=== PATIENT | female | born 1935 | race Caucasian/White ===

== ENCOUNTER 2019-12-18 10:44 | Inpatient (IN) | payer MEDICARE, OTHER, MEDICAID ==
--- NOTE | 2019-12-18 11:55 | EDM.PDOC ---
ED HPI GENERAL MEDICAL PROBLEM - General Chief Complaint: General Stated Complaint: weakness, SOB, edema Time Seen by Provider: 12/18/19 11:44 Source of Information: Reports: Patient History Limitations: Reports: No Limitations - History of Present Illness INITIAL COMMENTS - FREE TEXT/NARRATIVE: Patient comes to ER complaining of developing severe fatigue and inability to perform ADLs. Somewhat vague as to timeframe of strength slipping but appears to have been noticeable over the last week or two. Came via EMS. Has lost about 10-15 pounds within the last month. Denies fevers/chills/night sweats Denies obvious infectious symptoms. Uses nebs at home but they are not on her med records/suspect she may be using her 's nebs. HEENT negative for headache/ST/runny nose/acute changes. Has chronic vertigo and says that is unchanged. Resp + for "40min of coughing" this morning. Denies other problems with coughing. Not coughing anything up. Has SOB with any activity. No pain with inspiration. CV negative for chest pain/palpitations/syncope/worsening baseline dizziness. GI negative for nausea/emesis/bowel change/abdominal pain/blood in stool negative for UTI complaints/hematuria/acute changes MS + for generalized weakness. No new focal complaint. No new pain complaint. Has worsening lower extremity edema bilaterally Neuro + for tingly hands and fingers at times. Denies other numbness/tingling or focal weakness Said she recently saw a doctor but could not recall who/where/when. Has history of lung cancer upon review of record. Patient says she has had squamous cell cancer but NOT lung cancer. agrees that he never heard of a cancer diagnosis in the past. feels that patient has really gone downhill this spring and especially over the last few months. She sometimes gets confused and he wonders about developing dementia. Patient does not want any artificial life support. Has home O2/NC Sats noted to be in low 80s upon arrival to ER. Currently on 2L NC with O2 sats 99% Neck Pain Score (Numeric/FACES): 3 - Related Data Allergies Allergy/AdvReac Type Severity Reaction Status Date / Time aspirin [From Fiorinal] Allergy Other Verified 12/18/19 11:22 butalbital [From Fiorinal] Allergy Other Verified 12/18/19 11:22 caffeine [From Fiorinal] Allergy Other Verified 12/18/19 11:22 clopidogrel [From Plavix] Allergy Other Verified 12/18/19 11:22 tetracycline Allergy Other Verified 12/18/19 11:22 furosemide [From Lasix] AdvReac Dizziness Verified 12/18/19 11:22 hydrocodone bitartrate AdvReac Vomiting Verified 12/18/19 11:22 [From Vicoprofen] ibuprofen [From Vicoprofen] AdvReac Vomiting Verified 12/18/19 11:22 Home Meds: Home Meds Cholecalciferol (Vitamin D3) [Vitamin D3] 2 tab PO DAILY 04/30/14 [History] Latanoprost [Xalatan 0.005% Ophth Soln] 1 drop EYEBOTH BEDTIME 04/30/14 [History] Timolol [Betimol 0.5% Ophth Soln] 1 drop EYEBOTH DAILY 04/30/14 [History] Albuterol [IMW: Albuterol] 1 dose INH BID 04/30/16 [History] Magnesium Hydroxide [Milk of Magnesia] 30 ml PO DAILY PRN 10/22/19 [History] clonazePAM [Clonazepam] 0.5 mg PO BID 10/22/19 [History] Acetaminophen [Tylenol] 650 mg PO Q4H PRN tablet 10/24/19 [Rx] Potassium Chloride 20 meq PO DAILY #5 tablet.er 10/24/19 [Rx] Non-Formulary Medication [NF Drug] 2 liter NASBOTH ASDIRECTED 12/18/19 [History] Torsemide 100 mg PO DAILY 12/18/19 [History] Past Medical History HEENT History: Reports: Cataract, Epistaxis, Glaucoma, Hard of Hearing, Other (See Below) Other HEENT History: Glossitis Cardiovascular History: Reports: Heart Failure, Heart Murmur, Hypertension, Pulmonary Hypertension, SOB on Exertion Respiratory History: Reports: Pulmonary Fibrosis, SOB Gastrointestinal History: Reports: Chronic Constipation, Diverticulosis Genitourinary History: Reports: Other (See Below) Other Genitourinary History: UTI 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: Musculoskeletal History: Reports: Other (See Below) (Kyphosis) Psychiatric History: Reports: Anxiety, Depression Hematologic History: Reports: Anemia Oncologic (Cancer) History: Reports: Squamous Cell Carcinoma Other Oncologic History: Skin Dermatologic History: Reports: Other (See Below) Other Dermatologic History: Alopecia - Infectious Disease History Infectious Disease History: Reports: Chicken Pox - Past Surgical History HEENT Surgical History: Reports: Cataract Surgery, Eye Surgery, Laser Surgery Other HEENT Surgeries/Procedures: selective laser trabeculoplasty - od, Yag capsulotomy - od both eyes Social & Family History - Family History Family Medical History: Noncontributory - Caffeine Use Caffeine Use: Reports: None - Living Situation & Occupation Living situation: Reports: ED ROS GENERAL - Review of Systems Review Of Systems: Comprehensive ROS is negative, except as noted in HPI. ED EXAM, GENERAL - Physical Exam Exam: See Below Exam Limited By: No Limitations General Appearance: Obese, Other (Patient easily doses off. Answers questions when asked/low volume voice. ) Eye Exam: Bilateral Eye: EOMI, PERRL Ears: Hearing Grossly Normal Nose: No: Nasal Deformity, Nasal Swelling, Nasal Drainage Throat/Mouth: Normal Lips, Normal Voice, No Airway Compromise Head: Atraumatic, Normocephalic Neck: Supple, Non-Tender, Full Range of Motion Respiratory/Chest: No Respiratory Distress, Other (Very kyphotic back. Decreased breath sounds throughout, more so on right. Mild crackles at bases. ) Cardiovascular: Normal Peripheral Pulses, Regular Rate, Rhythm, Systolic Murmur Peripheral Pulses: 2+: Radial (L), Radial (R) GI/Abdominal: Normal Bowel Sounds, Soft, Non-Tender, No Distention (Female) Exam: Deferred Rectal (Female) Exam: Deferred Back Exam: No: CVA Tenderness (L), CVA Tenderness (R), Muscle Spasm Extremities: Pedal Edema (Bilaterally, 3-4+, mild erythema over anterior lower left leg but no increase in warmth noted. Skin intact/no drainage). No: Leg P ain, Increased Warmth, Mottled, Pallor Neurological: Alert, Oriented, Other (equal tone and strength bilaterally) Psychiatric: Flat Affect Skin Exam: Warm, Dry, Intact, Normal Color EKG INTERPRETATION EKG Date: 12/18/19 Time: 11:33 Rhythm: NSR Rate (Beats/Min): 91 [place]: Normal P-Wave: Present QRS: Normal ST-T: Normal QT: Normal Course - Vital Signs Last Recorded V/S: Last Vital Signs Temp 37.1 C 12/18/19 11:00 Pulse 92 12/18/19 12:30 Resp 24 H 12/18/19 12:30 BP 128/81 12/18/19 12:30 Pulse Ox 100 12/18/19 12:30 - Orders/Labs/Meds Orders: Active Orders 24 hr Category Date Time Status BIPAP [RT BiPAP/CPAP] [RC] ASDIRECTED Care 12/18/19 14:57 Active EKG Documentation Completion [RC] ASDIRECTED Care 12/18/19 11:17 Active RT Aerosol Therapy [RC] ASDIRECTED Care 12/18/19 15:08 Active CXR [Chest 2V] [CR] Stat Exams 12/18/19 11:16 Taken Chest w Cont [CT] Stat Exams 12/18/19 12:17 Taken Sodium Chloride 0.9% [Saline Flush] Med 12/18/19 17:28 Active 10 ml FLUSH ASDIRECTED PRN Medication Orders Sodium Chloride (Saline Flush) 10 ml FLUSH ASDIRECTED PRN PRN Reason: to flush Saline Lock Last Admin: 12/18/19 17:32 Dose: 10 ml Documented by: AUGUSTO Labs: Laboratory Tests 12/18/19 12/18/19 12/18/19 Range/Units 11:35 11:35 12:18 WBC 7.1 (4.0-10.2) K/uL RBC 3.72 L (3.77-5.09) M/uL Hgb 10.8 L (11.7-15.5) g/dL Hct 35.2 (34.0-46.0) % MCV 94.6 (84.0-98.0) fL MCH 29.0 (28.2-33.3) pg MCHC 30.7 L (31.7-36.0) g/dL RDW 12.4 (11.2-14.1) % Plt Count 178 (150-350) K/uL Neut % (Auto) 73.1 (45.0-80.0) % Lymph % (Auto) 13.1 (10.0-50.0) % [facility] % (Auto) 10.7 (2.0-14.0) % Eos % (Auto) 2.5 (0.0-5.0) % Baso % (Auto) 0.6 (0.0-2.0) % Neut # (Auto) 5.17 (1.40-7.00) K/uL Lymph # (Auto) 0.93 (0.50-3.50) K/uL [facility] # (Auto) 0.76 (0.00-1.00) K/uL Eos # (Auto) 0.18 (0.00-0.50) K/uL Baso # (Auto) 0.04 (0.00-0.20) K/uL ABG pH (7.35-7.45) ABG pCO2 (35-45) mmHG ABG pO2 (80-105) mmHG ABG HCO3 (22-26) mmol/L ABG Total CO2 (23-27) mmol/L ABG O2 Saturation (95-98) % ABG Base Excess (-2-3) mmol/L O2 Delivery Device Sodium 134 L (136-145) mmol/L Potassium 3.4 L (3.5-5.1) mmol/L Chloride 90 L (98-107) mmol/L Carbon Dioxide 46.3 H* (21.0-32.0) mmol/L BUN 9 (7-18) mg/dL Creatinine 0.40 L (0.51-1.17) mg/dL Est Cr Clr Drug Dosing TNP Estimated GFR (MDRD) > 60 mL/min Glucose 112 H (74-106) mg/dL Calcium 9.2 (8.5-10.1) mg/dL Magnesium 2.2 (1.8-2.4) mg/dL Total Bilirubin 0.6 (0.2-1.0) mg/dL AST 19 (15-37) U/L ALT 18 (12-78) U/L Alkaline Phosphatase 68 (46-116) IU/L NT-Pro-B Natriuret Pep 194 H (0-125) pg/mL Total Protein 7.3 (6.4-8.2) g/dL Albumin 2.8 L (3.4-5.0) g/dL Specimen Type Urinvoid Urine Color Susan Urine Appearance Clear Urine pH 7.5 (5.0-9.0) Ur Specific [place] 1.020 (1.005-1.030) Urine Protein Trace H (NEGATIVE) mg/dL Urine Glucose (UA) Negative (NEGATIVE) mg/dL Urine Ketones Negative (NEGATIVE) mg/dL Urine Occult Blood Trace-lysed H (NEGATIVE) Urine Nitrite Negative (NEGATIVE) Urine Bilirubin Small H (NEGATIVE) Urine Urobilinogen 1.0 (0.2-1.0) E.U./dL Ur Leukocyte Esterase Trace H (NEGATIVE) Urine RBC 0-5 /HPF Urine WBC 5-10 H /HPF Ur Epithelial Cells Few /LPF Urine Bacteria Few (NONE TO FEW) /HPF Urinalysis Comment 12/18/19 12/18/19 Range/Units 12:39 16:55 WBC (4.0-10.2) K/uL RBC (3.77-5.09) M/uL Hgb (11.7-15.5) g/dL Hct (34.0-46.0) % MCV (84.0-98.0) fL MCH (28.2-33.3) pg MCHC (31.7-36.0) g/dL RDW (11.2-14.1) % Plt Count (150-350) K/uL Neut % (Auto) (45.0-80.0) % Lymph % (Auto) (10.0-50.0) % [facility] % (Auto) (2.0-14.0) % Eos % (Auto) (0.0-5.0) % Baso % (Auto) (0.0-2.0) % Neut # (Auto) (1.40-7.00) K/uL Lymph # (Auto) (0.50-3.50) K/uL [facility] # (Auto) (0.00-1.00) K/uL Eos # (Auto) (0.00-0.50) K/uL Baso # (Auto) (0.00-0.20) K/uL ABG pH 7.34 L 7.37 (7.35-7.45) ABG pCO2 95 H* 89 H* (35-45) mmHG ABG pO2 98 75 L (80-105) mmHG ABG HCO3 51.4 H 50.8 H (22-26) mmol/L ABG Total CO2 > 50 H > 50 H (23-27) mmol/L ABG O2 Saturation 96 93 L (95-98) % ABG Base Excess 26 H 26 H (-2-3) mmol/L O2 Delivery Device Nasal cannula Bipap Sodium (136-145) mmol/L Potassium (3.5-5.1) mmol/L Chloride (98-107) mmol/L Carbon Dioxide (21.0-32.0) mmol/L BUN (7-18) mg/dL Creatinine (0.51-1.17) mg/dL Est Cr Clr Drug Dosing Estimated GFR (MDRD) mL/min Glucose (74-106) mg/dL Calcium (8.5-10.1) mg/dL Magnesium (1.8-2.4) mg/dL Total Bilirubin (0.2-1.0) mg/dL AST (15-37) U/L ALT (12-78) U/L Alkaline Phosphatase (46-116) IU/L NT-Pro-B Natriuret Pep (0-125) pg/mL Total Protein (6.4-8.2) g/dL Albumin (3.4-5.0) g/dL Specimen Type Urine Color Urine Appearance Urine pH (5.0-9.0) Ur Specific [place] (1.005-1.030) Urine Protein (NEGATIVE) mg/dL Urine Glucose (UA) (NEGATIVE) mg/dL Urine Ketones (NEGATIVE) mg/dL Urine Occult Blood (NEGATIVE) Urine Nitrite (NEGATIVE) Urine Bilirubin (NEGATIVE) Urine Urobilinogen (0.2-1.0) E.U./dL Ur Leukocyte Esterase (NEGATIVE) Urine RBC /HPF Urine WBC /HPF Ur Epithelial Cells /LPF Urine Bacteria (NONE TO FEW) /HPF Urinalysis Comment Meds: Medications Generic Name Dose Route Start Last Admin Trade Name Freq PRN Reason Stop Dose Admin Sodium Chloride 10 ml 12/18/19 17:28 12/18/19 17:32 Saline Flush FLUSH 10 ml ASDIRECTED PRN Administration to flush Saline Lock Discontinued Medications Generic Name Dose Route Start Last Admin Trade Name Freq PRN Reason Stop Dose Admin Albuterol/Ipratropium 3 ml 12/18/19 15:08 12/18/19 15:20 Duoneb 3.0-0.5 Mg/3 Ml NEB 12/18/19 15:09 3 ml ONETIME ONE Administration Ceftriaxone Sodium 1 gm 12/18/19 15:09 12/18/19 15:20 Rocephin IVPUSH 12/18/19 15:10 1 gm ONETIME ONE Administration Furosemide 40 mg 12/18/19 15:08 12/18/19 15:20 Lasix IVPUSH 12/18/19 15:09 40 mg NOW ONE Administration Azithromycin 500 mg/ Sodium 250 mls @ 250 mls/hr 12/18/19 15:08 12/18/19 15:20 Chloride IV 12/18/19 16:07 250 mls/hr ONETIME ONE Administration Iopamidol 100 ml 12/18/19 13:07 Isovue-300 (61%) IVPUSH 12/18/19 13:08 ONETIME ONE Iopamidol Confirm 12/18/19 13:11 Isovue-300 (61%) Administered 12/18/19 13:12 Dose 100 ml .ROUTE .[facility] ONE - Re-Assessments/Exams Free Text/Narrative Re-Assessment/Exam: 12/18/19 15:13 Chest xray showed decreased volume/severe kyphosis. Appears to have infiltrate on right. WBC normal. CBC unremarkable except for HGB 10.8 Chem showed good renal function. Very mild decrease in K and NaCl. Normal LFTs. UA unremarkable. ProBNP minimally above normal limit. Co2 markedly elevated. Patient appeared to nap most of the time in the ER, but was easily arousable to voice and would ask/answer questions. No observable respiratory distress. Given lack of fever/normal WBC/findings on chest xray/Co2 retention it was determined that it would be best to get a better look at patient's chest and CT performed. CT also noted difficulty in exam due to patient's body habitus/kyphosis. Noted scoliosis with reduced lung volumes, and dense consolidation right lower lobe and patchy opacity right upper lobe suspicious for infectious infiltrate. Call placed to [facility] once CT was resulted and patient reviewed with Hospitalist . He recommended trying to reduce CO2 via 1hr trial BiPap with repeat ABG in 1 hr. They have accepted the patient for additional workup but will determine if she goes to ICU vs Intermediate care pending results of next ABG. 12/18/19 17:36 Mild improvement on second set of ABGs. Review of patient's old labs shows she is usually around 40s-50s for CO2 when having CMPs performed. Thus this appears to be her baseline. Called [facility] again, this time reviewed patient with . We agreed that patient likely has right sided pneumonia and admission/antibiotics would be treatment of choice. She also reviewed patient's chart and noted that there is no history of lung cancer and patient runs high Co2 levels normally. She felt comfortable having patient stay here for treatment. Pt wished to be admitted her when given choice of staying vs transfer to [place]. Departure - Departure Time of Disposition: 17:39 Disposition: Admitted As Inpatient 65 Condition: Good Clinical Impression: Pneumonia - Discharge Information *PRESCRIPTION DRUG MONITORING PROGRAM REVIEWED*: Not Applicable *COPY OF PRESCRIPTION DRUG MONITORING REPORT IN PATIENT YAMILEX: Not Applicable Referrals: Heidi Hoyos MD [Primary Care Provider] - Forms: ED Department Discharge Sepsis Event Note (ED) - Evaluation Sepsis Screening Result: No Definite Risk - Focused Exam Vital Signs: Vital Signs Temp Pulse Resp BP Pulse Ox 12/18/19 12:30 92 24 H 128/81 100 12/18/19 11:30 91 24 H 120/72 100 12/18/19 11:15 90 19 119/75 100 12/18/19 11:00 37.1 C 95 20 132/76 82 L - Problem List & Annotations (1) Pneumonia SNOMED Code(s): 236720087 Code(s): J18.9 - PNEUMONIA, UNSPECIFIED ORGANISM Status: Acute Priority: High Current Visit: Yes Annotation/Comment:: Right sided pnemonia. Most prominent in lower lobe. No history of aspiration. Unknown organism. Will order sputum culture. IV Rocephin and Zithromax initiated. (2) Need for comfort care SNOMED Code(s): 355497531, 618592917 Code(s): KHG0175 - Status: Chronic Priority: High Current Visit: Yes (3) Anxiety disorder SNOMED Code(s): 961582597 Code(s): F41.9 - ANXIETY DISORDER, UNSPECIFIED Status: Chronic Priority: Low Current Visit: No Annotation/Comment:: stable by history (4) CHF (congestive heart failure) SNOMED Code(s): 87502794 Code(s): I50.9 - HEART FAILURE, UNSPECIFIED Status: Chronic Priority: Low Current Visit: Yes Annotation/Comment:: No evidence of significant overload noted on physical exam. Mild elevation proBNP. Lasix given in ER. Qualifiers: Heart failure type: unspecified Heart failure chronicity: chronic Qualified Code(s): I50.9 - Heart failure, unspecified (5) Weakness SNOMED Code(s): 63655785 Code(s): R53.1 - WEAKNESS Status: Chronic Priority: High Current Visit: Yes Annotation/Comment:: Worsening over last few weeks. Unable to perform ADLs. Needed to help lift her today at home. (6) Bilateral lower extremity edema SNOMED Code(s): 631753446, 30768905, 599780782 Code(s): R60.0 - LOCALIZED EDEMA Status: Chronic Priority: Low Current Visit: Yes Annotation/Comment:: Chronic bilateral LE edema. Has gotten a little worse recently per patient. (7) Glaucoma SNOMED Code(s): 90238795 Code(s): H40.9 - UNSPECIFIED GLAUCOMA Status: Chronic Priority: Low Current Visit: No Annotation/Comment:: Under therapy Qualifiers: Glaucoma type: unspecified (8) Scoliosis (and kyphoscoliosis), idiopathic SNOMED Code(s): 88933947 Code(s): M41.20 - OTHER IDIOPATHIC SCOLIOSIS, SITE UNSPECIFIED Status: Chronic Priority: Low Current Visit: No (9) Hypercapnia SNOMED Code(s): 28120398 Code(s): R06.89 - OTHER ABNORMALITIES OF BREATHING Status: Chronic Priority: Low Current Visit: Yes Annotation/Comment:: Stable (10) Hypoxemia SNOMED Code(s): 921723480 Code(s): R09.02 - HYPOXEMIA Status: Chronic Priority: Medium Current Visit: Yes Annotation/Comment:: On home O2 at 2L - Problem List Review Problem List Initiated/Reviewed/Updated: Yes - My Orders Last 24 Hours: My Active Orders 12/18/19 11:16 CXR [Chest 2V] [CR] Stat 12/18/19 11:17 EKG Documentation Completion [RC] ASDIRECTED 12/18/19 12:17 Chest w Cont [CT] Stat 12/18/19 14:57 BIPAP [RT BiPAP/CPAP] [RC] ASDIRECTED 12/18/19 15:08 RT Aerosol Therapy [RC] ASDIRECTED 12/18/19 17:28 Sodium Chloride 0.9% [Saline Flush] 10 ml FLUSH ASDIRECTED PRN - Assessment/Plan Admission H&P: Please use this note as an admission H&P Last 24 Hours: My Active Orders 12/18/19 11:16 CXR [Chest 2V] [CR] Stat 12/18/19 11:17 EKG Documentation Completion [RC] ASDIRECTED 12/18/19 12:17 Chest w Cont [CT] Stat 12/18/19 14:57 BIPAP [RT BiPAP/CPAP] [RC] ASDIRECTED 12/18/19 15:08 RT Aerosol Therapy [RC] ASDIRECTED 12/18/19 17:28 Sodium Chloride 0.9% [Saline Flush] 10 ml FLUSH ASDIRECTED PRN Assessment:: as above Plan: as above. Admit. IV antibiotics. PT and OT to evaluate patient next week. May need swing bed stay for strengthening and to determine if patient can safely return home.
[2019-12-18 12:00] LABS: CHLORIDE,CL 90 mmol/L (98-107); SODIUM,NA 134 mmol/L (136-145)
[2019-12-18 12:41] LABS: O2 DELIVERY DEVICE NASAL CANNULA
[2019-12-18 12:43] LABS: O2 SATURATION ARTERIAL 96 % (95-98); PCO2 ARTERIAL 95 mmHG (35-45); PO2 ARTERIAL 98 mmHG (80-105)
[2019-12-18 12:44] LABS: BASE EXCESS ARTERIAL 26 mmol/L (-2-3); BICARBONATE,ARTERIAL 51.4 mmol/L (22-26)
[2019-12-18] MEDS ORDERED: Iopamidol 612 MG/ML 100 ML Bottle IVPUSH ONE (13:07)
[2019-12-18] MEDS ORDERED: Iopamidol 612 MG/ML 100 ML Bottle ONE (13:11)
[2019-12-18] MEDS ORDERED: Furosemide 40 MG/4 ML VIAL IVPUSH ONE (15:08)
[2019-12-18] MEDS ORDERED: Azithromycin 500 MG in Sodium Chloride 0.9% 250 ML IV ONE (15:08)
[2019-12-18] MEDS ORDERED: Albuterol/Ipratropium 3.0-0.5 MG/3 ML Neb Soln NEB ONE (15:08)
[2019-12-18] MEDS ORDERED: cefTRIAXone 1 GM Vial IVPUSH ONE (15:09)
[2019-12-18 17:19] LABS: O2 DELIVERY DEVICE BIPAP; PCO2 ARTERIAL 89 mmHG (35-45); PO2 ARTERIAL 75 mmHG (80-105)
[2019-12-18 17:20] LABS: BASE EXCESS ARTERIAL 26 mmol/L (-2-3); BICARBONATE,ARTERIAL 50.8 mmol/L (22-26); O2 SATURATION ARTERIAL 93 % (95-98)
[2019-12-18] MEDS: Sodium Chloride 0.9% 10 ML Syringe FLUSH PRN (17:32)
[2019-12-18] MEDS ORDERED: Acetaminophen 325 MG Tab PO PRN ×2 (17:47→17:53)
[2019-12-18] MEDS ORDERED: Ondansetron 4 MG/2 ML SDV IVPUSH PRN (17:47)
[2019-12-18] MEDS ORDERED: Bisacodyl 5 MG Tab PO PRN (17:47)
[2019-12-18] MEDS ORDERED: Sennosides 8.6 MG Tab PO PRN (17:47)
[2019-12-18] MEDS ORDERED: Magnesium Hydroxide 400 MG/5 ML Susp 30 ML Cup PO PRN (17:53)
[2019-12-18] MEDS: ClonazePAM 0.5 MG Tab PO SCH (19:28)
[2019-12-18] MEDS: Albuterol/Ipratropium 3.0-0.5 MG/3 ML Neb Soln NEB SCH (19:30)
[2019-12-18] MEDS: Latanoprost 0.005% Ophth Soln 2.5 ML Bottle EYEBOTH SCH (19:39)
[2019-12-19] MEDS: Albuterol/Ipratropium 3.0-0.5 MG/3 ML Neb Soln NEB SCH ×4 (02:22→19:57)
[2019-12-19] MEDS ORDERED: Furosemide 40 MG/4 ML VIAL IVPUSH ONE (08:00)
--- NOTE | 2019-12-19 08:22 | PCM.PN ---
- General Info Date of Service: 12/19/19 Admission Dx/Problem (Free Text): Right sided pneumonia/unknown organism and worsening weakness Subjective Update: No overall change from yesterday. Intermittent cough/feels tired. No new complaints. Functional Status: Reports: Pain Controlled, Tolerating Diet, Ambulating (with assistance), Urinating, Incentive Spirometry. Denies: New Symptoms - Review of Systems General: Reports: Weakness, Fatigue. Denies: Fever, Malaise, Chills, Night Sweats HEENT: Denies: Headaches, Post Nasal Drip, Sinus Congestion, Sore Throat, Rhinitis, Visual Changes Pulmonary: Reports: Shortness of Breath, Cough. Denies: Pleuritic Chest Pain, Sputum, Hemoptysis, Wheezing Cardiovascular: Reports: Dyspnea on Exertion, Edema, Lightheadedness (chronic). Denies: Chest Pain, Palpitations, Orthopnea Gastrointestinal: Reports: No Symptoms Genitourinary: Reports: No Symptoms Musculoskeletal: Reports: Other (no focal pain complaints) Neurological: Reports: Confusion (noted by staff to be confused at times/ has concerns she is developing dementia), Difficulty Walking (weak) - Patient Data Vitals - Most Recent: Last Vital Signs Temp 37.0 C 12/19/19 02:26 Pulse 87 12/19/19 02:26 Resp 20 12/19/19 02:26 BP 118/70 12/19/19 02:26 Pulse Ox 97 12/19/19 02:26 Weight - Most Recent: 63.276 kg I&O - Last 24 Hours: Intake & Output 12/18/19 12/19/19 12/19/19 22:59 06:59 14:59 Intake Total 150 Output Total 400 200 Balance -400 -50 Lab Results Last 24 Hours: Laboratory Results - last 24 hr 12/18/19 12/18/19 12/18/19 Range/Units 11:35 11:35 12:18 WBC 7.1 (4.0-10.2) K/uL RBC 3.72 L (3.77-5.09) M/uL Hgb 10.8 L (11.7-15.5) g/dL Hct 35.2 (34.0-46.0) % MCV 94.6 (84.0-98.0) fL MCH 29.0 (28.2-33.3) pg MCHC 30.7 L (31.7-36.0) g/dL RDW 12.4 (11.2-14.1) % Plt Count 178 (150-350) K/uL Neut % (Auto) 73.1 (45.0-80.0) % Lymph % (Auto) 13.1 (10.0-50.0) % [place] % (Auto) 10.7 (2.0-14.0) % Eos % (Auto) 2.5 (0.0-5.0) % Baso % (Auto) 0.6 (0.0-2.0) % Neut # (Auto) 5.17 (1.40-7.00) K/uL Lymph # (Auto) 0.93 (0.50-3.50) K/uL [place] # (Auto) 0.76 (0.00-1.00) K/uL Eos # (Auto) 0.18 (0.00-0.50) K/uL Baso # (Auto) 0.04 (0.00-0.20) K/uL ABG pH (7.35-7.45) ABG pCO2 (35-45) mmHG ABG pO2 (80-105) mmHG ABG HCO3 (22-26) mmol/L ABG Total CO2 (23-27) mmol/L ABG O2 Saturation (95-98) % ABG Base Excess (-2-3) mmol/L O2 Delivery Device Sodium 134 L (136-145) mmol/L Potassium 3.4 L (3.5-5.1) mmol/L Chloride 90 L (98-107) mmol/L Carbon Dioxide 46.3 H* (21.0-32.0) mmol/L BUN 9 (7-18) mg/dL Creatinine 0.40 L (0.51-1.17) mg/dL Est Cr Clr Drug Dosing TNP Estimated GFR (MDRD) > 60 mL/min Glucose 112 H (74-106) mg/dL Calcium 9.2 (8.5-10.1) mg/dL Magnesium 2.2 (1.8-2.4) mg/dL Total Bilirubin 0.6 (0.2-1.0) mg/dL AST 19 (15-37) U/L ALT 18 (12-78) U/L Alkaline Phosphatase 68 (46-116) IU/L NT-Pro-B Natriuret Pep 194 H (0-125) pg/mL Total Protein 7.3 (6.4-8.2) g/dL Albumin 2.8 L (3.4-5.0) g/dL Specimen Type Urinvoid Urine Color [place] Urine Appearance Clear Urine pH 7.5 (5.0-9.0) Ur Specific [place] 1.020 (1.005-1.030) Urine Protein Trace H (NEGATIVE) mg/dL Urine Glucose (UA) Negative (NEGATIVE) mg/dL Urine Ketones Negative (NEGATIVE) mg/dL Urine Occult Blood Trace-lysed H (NEGATIVE) Urine Nitrite Negative (NEGATIVE) Urine Bilirubin Small H (NEGATIVE) Urine Urobilinogen 1.0 (0.2-1.0) E.U./dL Ur Leukocyte Esterase Trace H (NEGATIVE) Urine RBC 0-5 /HPF Urine WBC 5-10 H /HPF Ur Epithelial Cells Few /LPF Urine Bacteria Few (NONE TO FEW) /HPF Urinalysis Comment 12/18/19 12/18/19 Range/Units 12:39 16:55 WBC (4.0-10.2) K/uL RBC (3.77-5.09) M/uL Hgb (11.7-15.5) g/dL Hct (34.0-46.0) % MCV (84.0-98.0) fL MCH (28.2-33.3) pg MCHC (31.7-36.0) g/dL RDW (11.2-14.1) % Plt Count (150-350) K/uL Neut % (Auto) (45.0-80.0) % Lymph % (Auto) (10.0-50.0) % [place] % (Auto) (2.0-14.0) % Eos % (Auto) (0.0-5.0) % Baso % (Auto) (0.0-2.0) % Neut # (Auto) (1.40-7.00) K/uL Lymph # (Auto) (0.50-3.50) K/uL [place] # (Auto) (0.00-1.00) K/uL Eos # (Auto) (0.00-0.50) K/uL Baso # (Auto) (0.00-0.20) K/uL ABG pH 7.34 L 7.37 (7.35-7.45) ABG pCO2 95 H* 89 H* (35-45) mmHG ABG pO2 98 75 L (80-105) mmHG ABG HCO3 51.4 H 50.8 H (22-26) mmol/L ABG Total CO2 > 50 H > 50 H (23-27) mmol/L ABG O2 Saturation 96 93 L (95-98) % ABG Base Excess 26 H 26 H (-2-3) mmol/L O2 Delivery Device Nasal cannula Bipap Sodium (136-145) mmol/L Potassium (3.5-5.1) mmol/L Chloride (98-107) mmol/L Carbon Dioxide (21.0-32.0) mmol/L BUN (7-18) mg/dL Creatinine (0.51-1.17) mg/dL Est Cr Clr Drug Dosing Estimated GFR (MDRD) mL/min Glucose (74-106) mg/dL Calcium (8.5-10.1) mg/dL Magnesium (1.8-2.4) mg/dL Total Bilirubin (0.2-1.0) mg/dL AST (15-37) U/L ALT (12-78) U/L Alkaline Phosphatase (46-116) IU/L NT-Pro-B Natriuret Pep (0-125) pg/mL Total Protein (6.4-8.2) g/dL Albumin (3.4-5.0) g/dL Specimen Type Urine Color Urine Appearance Urine pH (5.0-9.0) Ur Specific [employer] [place] (1.005-1.030) Urine Protein (NEGATIVE) mg/dL Urine Glucose (UA) (NEGATIVE) mg/dL Urine Ketones (NEGATIVE) mg/dL Urine Occult Blood (NEGATIVE) Urine Nitrite (NEGATIVE) Urine Bilirubin (NEGATIVE) Urine Urobilinogen (0.2-1.0) E.U./dL Ur Leukocyte Esterase (NEGATIVE) Urine RBC /HPF Urine WBC /HPF Ur Epithelial Cells /LPF Urine Bacteria (NONE TO FEW) /HPF Urinalysis Comment Med Orders - Current: Current Medications Acetaminophen (Tylenol) 650 mg PO Q4H PRN PRN Reason: Pain (Mild 1-3)/fever Albuterol/Ipratropium (Duoneb 3.0-0.5 Mg/3 Ml) 3 ml NEB Q6HRRT [facility] Last Admin: 12/19/19 02:22 Dose: 3 ml Documented by: Bisacodyl (Dulcolax) 5 mg PO DAILY PRN PRN Reason: Constipation Cholecalciferol (Vitamin D3) 50 mcg PO DAILY [facility] Clonazepam (Klonopin) 0.5 mg PO BID [facility] Last Admin: 12/18/19 19:28 Dose: 0.5 mg Documented by: Azithromycin 500 mg/ Sodium (Chloride) 250 mls @ 250 mls/hr IV Q24H [facility] Ceftriaxone Sodium 1 gm/ (Sodium Chloride) 100 mls @ 200 mls/hr IV Q24H [facility] Latanoprost (Xalatan 0.005% Ophth Soln) 0 ml EYEBOTH BEDTIME [facility] Last Admin: 12/18/19 19:39 Dose: 1 drop Documented by: Magnesium Hydroxide (Milk Of Magnesia) 30 ml PO DAILY PRN PRN Reason: Constipation Ondansetron HCl (Zofran) 4 mg IVPUSH Q6H PRN PRN Reason: Nausea/Vomiting Polyethylene Glycol (Miralax) 17 gm PO DAILY [facility] Potassium Chloride (Klor-Con M20) 20 meq PO DAILY [facility] Senna (Senna) 1 mg PO BID PRN PRN Reason: Constipation Sodium Chloride (Saline Flush) 10 ml FLUSH ASDIRECTED PRN PRN Reason: to flush Saline Lock Last Admin: 12/18/19 17:32 Dose: 10 ml Documented by: Timolol Maleate (Timoptic 0.5% Ophth Soln) 0 ml EYEBOTH DAILY [facility] Discontinued Medications Acetaminophen (Tylenol) 650 mg PO Q4H PRN PRN Reason: Pain (Mild 1-3)/fever Albuterol/Ipratropium (Duoneb 3.0-0.5 Mg/3 Ml) 3 ml NEB ONETIME ONE Stop: 12/18/19 15:09 Last Admin: 12/18/19 15:20 Dose: 3 ml Documented by: Ceftriaxone Sodium (Rocephin) 1 gm IVPUSH ONETIME ONE Stop: 12/18/19 15:10 Last Admin: 12/18/19 15:20 Dose: 1 gm Documented by: Furosemide (Lasix) 40 mg IVPUSH NOW ONE Stop: 12/18/19 15:09 Last Admin: 12/18/19 15:20 Dose: 40 mg Documented by: Furosemide (Lasix) 40 mg IVPUSH NOW ONE Stop: 12/19/19 08:01 Azithromycin 500 mg/ Sodium (Chloride) 250 mls @ 250 mls/hr IV ONETIME ONE Stop: 12/18/19 16:07 Last Admin: 12/18/19 15:20 Dose: 250 mls/hr Documented by: Iopamidol (Isovue-300 (61%)) 100 ml IVPUSH ONETIME ONE Stop: 12/18/19 13:08 Last Admin: 12/18/19 23:29 Dose: Not Given Documented by: Iopamidol (Isovue-300 (61%)) Confirm Administered Dose 100 ml .ROUTE .STK-MED ONE Stop: 12/18/19 13:12 Last Admin: 12/18/19 23:29 Dose: Not Given Documented by: - Exam Quality Assessment: Supplemental Oxygen General: Alert, Cooperative, No Acute Distress, Other (thinks she went to [facility]) HEENT: Pupils Equal, Pupils Reactive, EOMI, Mucous Membr. Moist/[place] Neck: Supple Lungs: Normal Respiratory Effort, Rales (mild/lower half lungs). No: Rhonchi, Stridor, Wheezing Cardiovascular: Regular Rate, Regular Rhythm, Murmurs GI/Abdominal Exam: Normal Bowel Sounds, Soft, Non-Tender, No Distention (Female) Exam: Deferred Back Exam: No: CVA Tenderness (L), CVA Tenderness (R) Extremities: Pedal Edema (bilaterally, 3+ mild discomfort over anterior alvarez left which is chronic per patient). No: Increased Warmth, Mottled, Pallor Skin: Warm, Dry Neurological: No New Focal Deficit Psy/Mental Status: Alert, Normal Affect, Normal Mood Sepsis Event Note - Evaluation Sepsis Screening Result: Sepsis Risk - Focused Exam Vital Signs: Vital Signs Temp Pulse Resp BP Pulse Ox 12/19/19 02:26 37.0 C 87 20 118/70 97 Date Exam was Performed: 12/19/19 Time Exam was Performed: 08:17 - Problem List & Annotations (1) Pneumonia SNOMED Code(s): 169929627 Code(s): J18.9 - PNEUMONIA, UNSPECIFIED ORGANISM Status: Acute Priority: High Current Visit: Yes Annotation/Comment:: Right sided pnemonia. Most prominent in lower lobe. No history of aspiration. Unknown organism. Will order sputum culture. IV Rocephin and Zithromax initiated. (2) Need for comfort care SNOMED Code(s): 059104344, 292928680 Code(s): YQU6748 - Status: Chronic Priority: High Current Visit: Yes (3) Anxiety disorder SNOMED Code(s): 606164852 Code(s): F41.9 - ANXIETY DISORDER, UNSPECIFIED Status: Chronic Priority: Low Current Visit: No Annotation/Comment:: stable by history (4) CHF (congestive heart failure) SNOMED Code(s): 49523134 Code(s): I50.9 - HEART FAILURE, UNSPECIFIED Status: Chronic Priority: Low Current Visit: Yes Qualifiers: Heart failure type: unspecified Heart failure chronicity: chronic Qualified Code(s): I50.9 - Heart failure, unspecified Annotation/Comment:: No evidence of significant overload noted on physical exam. Mild elevation proBNP. Lasix given in ER. (5) Weakness SNOMED Code(s): 19412271 Code(s): R53.1 - WEAKNESS Status: Chronic Priority: High Current Visit: Yes Annotation/Comment:: Worsening over last few weeks. Unable to perform ADLs. Needed to help lift her today at home. (6) Bilateral lower extremity edema SNOMED Code(s): 584979471, 50497360, 754246535 Code(s): R60.0 - LOCALIZED EDEMA Status: Chronic Priority: Low Current Visit: Yes Annotation/Comment:: Chronic bilateral LE edema. Has gotten a little worse recently per patient. (7) Glaucoma SNOMED Code(s): 90522307 Code(s): H40.9 - UNSPECIFIED GLAUCOMA Status: Chronic Priority: Low Current Visit: No Qualifiers: Glaucoma type: unspecified Annotation/Comment:: Under therapy (8) Scoliosis (and kyphoscoliosis), idiopathic SNOMED Code(s): 10127444 Code(s): M41.20 - OTHER IDIOPATHIC SCOLIOSIS, SITE UNSPECIFIED Status: Chronic Priority: Low Current Visit: No (9) Hypercapnia SNOMED Code(s): 90062578 Code(s): R06.89 - OTHER ABNORMALITIES OF BREATHING Status: Chronic Priority: Low Current Visit: Yes Annotation/Comment:: Stable. Noted over recent years to usually run in 40s and 50s (10) Hypoxemia SNOMED Code(s): 415871561 Code(s): R09.02 - HYPOXEMIA Status: Chronic Priority: Medium Current Visit: Yes Annotation/Comment:: On home O2 at 2L - Problem List Review Problem List Initiated/Reviewed/Updated: Yes - My Orders Last 24 Hours: My Active Orders 12/18/19 11:16 CXR [Chest 2V] [CR] Stat 12/18/19 12:17 Chest w Cont [CT] Stat 12/18/19 17:28 Sodium Chloride 0.9% [Saline Flush] 10 ml FLUSH ASDIRECTED PRN 12/18/19 Dinner Regular Diet [DIET] 12/18/19 17:47 Patient Status [ADT] Routine Height and Weight [RC] DAILY May Shower [RC] ASDIRECTED Oxygen Therapy [RC] 2300 Up With Assistance [RC] ASDIRECTED Vital Signs [RC] ,,, Consult to Case Management/Automatic Profile Shaper Operator [CONS] Routine OT Evaluation and Treatment [CONS] Routine PT Evaluation and Treatment [CONS] Routine Acetaminophen [Tylenol] 650 mg PO Q4H PRN Ondansetron [Zofran] 4 mg IVPUSH Q6H PRN Sennosides [Senna] 1 mg PO BID PRN bisacodyL [Dulcolax] 5 mg PO DAILY PRN Resuscitation Status Routine 12/18/19 17:48 Intake and Output [RC] 06,18 Pulse Oximetry [RC] .PRN 12/18/19 17:49 Antiembolic Devices [RC] , RT Aerosol Therapy [RC] 02,,, Antiembolic Hose [OM.PC] Per Unit Routine 12/18/19 17:53 Magnesium Hydroxide [Milk of Magnesia] 30 ml PO DAILY PRN 12/18/19 17:56 CHF Questionnaire [COMM] Routine 12/18/19 18:00 ClonazePAM [KlonoPIN] 0.5 mg PO BID 12/18/19 20:00 Albuterol/Ipratropium [DuoNeb 3.0-0.5 MG/3 ML] 3 ml NEB Q6HRRT Latanoprost [Xalatan 0.005% Ophth Soln] 0 ml EYEBOTH BEDTIME 12/19/19 08:00 Cholecalciferol (Vitamin D3) [Vitamin D3] 50 mcg PO DAILY Potassium Chloride [Klor-Con M20] 20 meq PO DAILY polyethylene glycoL 3350 [MiraLAX] 17 gm PO DAILY timoloL maleate [Timoptic 0.5% Ophth Soln] 0 ml EYEBOTH DAILY 12/19/19 14:00 cefTRIAXone [Rocephin] 1 gm Sodium Chloride 0.9% [Normal Saline] 100 ml IV Q24H 12/19/19 15:00 Azithromycin [Zithromax] 500 mg Sodium Chloride 0.9% [Normal Saline] 250 ml IV Q24H 12/20/19 05:11 COMPREHENSIVE METABOLIC PN,CMP [CHEM] AM 12/20/19 05:15 CBC WITH AUTO DIFF [HEME] AM - Assessment Assessment:: as above - Plan Plan:: as above. Given the extent of the pneumonia and patient's weakness anticipate 4 day inpatient stay while these are being evaluated and treated. Patient also needs cognitive evaluation. Unable to perform ADLs on own/cannot ambulate. Suspect she will likely be candidate for swing bed PT and OT therapy. There is possibility that she will not be able to return to home environment if she cannot make gains in strength.
[2019-12-19] MEDS: Cholecalciferol (Vitamin D3) 25 MCG Tab PO SCH ×2 (08:40→08:49)
[2019-12-19] MEDS: Timolol Maleate 0.5% Ophth Soln 5 ML Bottle EYEBOTH SCH (08:40)
[2019-12-19] MEDS: ClonazePAM 0.5 MG Tab PO SCH ×2 (08:40→18:11)
[2019-12-19] MEDS: Potassium Chloride 20 MEQ Tab.ER PO SCH (08:40)
[2019-12-19] MEDS: Polyethylene Glycol 3350 Powder 17 GM Packet PO SCH (08:41)
[2019-12-19] MEDS: Sodium Chloride 0.9% 10 ML Syringe FLUSH PRN ×3 (08:42→15:27)
[2019-12-19] MEDS: cefTRIAXone 1 GM in Sodium Chloride 0.9% 100 ML IV SCH (14:45)
[2019-12-19] MEDS: Azithromycin 500 MG in Sodium Chloride 0.9% 250 ML IV SCH (15:27)
[2019-12-19] MEDS: Latanoprost 0.005% Ophth Soln 2.5 ML Bottle EYEBOTH SCH (19:56)
[2019-12-20] MEDS: Albuterol/Ipratropium 3.0-0.5 MG/3 ML Neb Soln NEB SCH ×4 (01:38→20:08)
[2019-12-20 07:57] LABS: CHLORIDE,CL 89 mmol/L (98-107); SODIUM,NA 136 mmol/L (136-145)
[2019-12-20] MEDS: ClonazePAM 0.5 MG Tab PO SCH ×2 (08:02→17:38)
[2019-12-20] MEDS: Potassium Chloride 20 MEQ Tab.ER PO SCH (08:02)
[2019-12-20] MEDS: Polyethylene Glycol 3350 Powder 17 GM Packet PO SCH (08:03)
[2019-12-20] MEDS: Timolol Maleate 0.5% Ophth Soln 5 ML Bottle EYEBOTH SCH (08:03)
[2019-12-20] MEDS: Sodium Chloride 0.9% 10 ML Syringe FLUSH PRN (14:56)
[2019-12-20] MEDS: cefTRIAXone 1 GM in Sodium Chloride 0.9% 100 ML IV SCH (14:56)
[2019-12-20] MEDS: Azithromycin 500 MG in Sodium Chloride 0.9% 250 ML IV SCH (15:38)
[2019-12-20] MEDS ORDERED: Glycerin Adult 2.1 GM Supp RECTAL ONE (16:43)
[2019-12-20] MEDS ORDERED: Bisacodyl 10 MG Supp RECTAL ONE (17:24)
[2019-12-20] MEDS ORDERED: Furosemide 40 MG/4 ML VIAL IVPUSH ONE (17:52)
--- NOTE | 2019-12-20 17:56 | PCM.PN ---
- General Info Date of Service: 12/20/19 Admission Dx/Problem (Free Text): Right sided pneumonia/unknown organism and worsening weakness Subjective Update: Complains of continued weakness/fatigue. SOB (unchanged) Constipated. Functional Status: Reports: Pain Controlled, Tolerating Diet, Ambulating (only with assistance), Urinating, Incentive Spirometry. Denies: New Symptoms - Review of Systems General: Reports: Weakness, Fatigue. Denies: Fever, Malaise, Chills, Night Sweats HEENT: Reports: Glasses Pulmonary: Reports: Shortness of Breath. Denies: Pleuritic Chest Pain, Cough, Sputum, Hemoptysis, Wheezing Cardiovascular: Reports: No Symptoms Gastrointestinal: Reports: Constipation. Denies: Abdominal Pain, Diarrhea, Di fficulty Swallowing, Melena, Nausea, Vomiting Genitourinary: Reports: No Symptoms Musculoskeletal: Reports: Other (No acute changes from baseline) Skin: Reports: Other (mild redness over left anterior alvarez) Neurological: Reports: Difficulty Walking (due to weakness), Weakness (global) Psychiatric: Reports: No Symptoms - Patient Data Vitals - Most Recent: Last Vital Signs Temp 36.9 C 12/20/19 08:00 Pulse 66 12/20/19 08:00 Resp 18 12/20/19 08:00 BP 111/64 12/20/19 08:00 Pulse Ox 90 L 12/20/19 08:00 Weight - Most Recent: 63.276 kg I&O - Last 24 Hours: Intake & Output 12/20/19 12/20/19 12/20/19 06:59 14:59 22:59 Intake Total 150 250 Output Total 300 200 Balance -150 50 Lab Results Last 24 Hours: Laboratory Results - last 24 hr 12/20/19 12/20/19 Range/Units 07:25 07:25 WBC 8.1 (4.0-10.2) K/uL RBC 3.47 L (3.77-5.09) M/uL Hgb 10.0 L (11.7-15.5) g/dL Hct 33.9 L (34.0-46.0) % MCV 97.7 D (84.0-98.0) fL MCH 28.8 (28.2-33.3) pg MCHC 29.5 L (31.7-36.0) g/dL RDW 12.6 (11.2-14.1) % Plt Count 183 (150-350) K/uL Neut % (Auto) 68.8 (45.0-80.0) % Lymph % (Auto) 16.3 (10.0-50.0) % [place] % (Auto) 11.1 (2.0-14.0) % Eos % (Auto) 3.6 (0.0-5.0) % Baso % (Auto) 0.2 (0.0-2.0) % Neut # (Auto) 5.57 (1.40-7.00) K/uL Lymph # (Auto) 1.32 (0.50-3.50) K/uL [place] # (Auto) 0.90 (0.00-1.00) K/uL Eos # (Auto) 0.29 (0.00-0.50) K/uL Baso # (Auto) 0.02 (0.00-0.20) K/uL Sodium 136 (136-145) mmol/L Potassium 4.3 (3.5-5.1) mmol/L Chloride 89 L (98-107) mmol/L Carbon Dioxide 47.6 H* (21.0-32.0) mmol/L BUN 13 (7-18) mg/dL Creatinine 0.35 L (0.51-1.17) mg/dL Est Cr Clr Drug Dosing 92.14 mL/min Estimated GFR (MDRD) > 60 mL/min Glucose 111 H (74-106) mg/dL Calcium 9.5 (8.5-10.1) mg/dL Total Bilirubin 0.5 (0.2-1.0) mg/dL AST 16 (15-37) U/L ALT 20 (12-78) U/L Alkaline Phosphatase 65 (46-116) IU/L Total Protein 6.8 (6.4-8.2) g/dL Albumin 2.5 L (3.4-5.0) g/dL Med Orders - Current: Current Medications Acetaminophen (Tylenol) 650 mg PO Q4H PRN PRN Reason: Pain (Mild 1-3)/fever Albuterol/Ipratropium (Duoneb 3.0-0.5 Mg/3 Ml) 3 ml NEB Q6HRRT [facility] [place] Last Admin: 12/20/19 14:56 Dose: 3 ml Documented by: Bisacodyl (Dulcolax) 5 mg PO DAILY PRN PRN Reason: Constipation Clonazepam (Klonopin) 0.5 mg PO BID [facility] Last Admin: 12/20/19 17:38 Dose: 0.5 mg Documented by: Azithromycin 500 mg/ Sodium (Chloride) 250 mls @ 250 mls/hr IV Q24H [facility] Last Admin: 12/20/19 15:38 Dose: 250 mls/hr Documented by: Ceftriaxone Sodium 1 gm/ (Sodium Chloride) 100 mls @ 200 mls/hr IV Q24H [facility] [place] Last Admin: 12/20/19 14:56 Dose: 200 mls/hr Documented by: Latanoprost (Xalatan 0.005% Ophth Soln) 0 ml EYEBOTH BEDTIME [facility] [place] Last Admin: 12/19/19 19:56 Dose: 1 drop Documented by: Magnesium Hydroxide (Milk Of Magnesia) 30 ml PO DAILY PRN PRN Reason: Constipation Last Admin: 12/20/19 06:01 Dose: 30 ml Documented by: Ondansetron HCl (Zofran) 4 mg IVPUSH Q6H PRN PRN Reason: Nausea/Vomiting Polyethylene Glycol (Miralax) 17 gm PO DAILY [facility] [place] Last Admin: 12/20/19 08:03 Dose: 17 gm Documented by: Potassium Chloride (Klor-Con M20) 20 meq PO DAILY [facility] [place] Last Admin: 12/20/19 08:02 Dose: 20 meq Documented by: Senna (Senna) 1 mg PO BID PRN PRN Reason: Constipation Sodium Chloride (Saline Flush) 10 ml FLUSH ASDIRECTED PRN PRN Reason: to flush Saline Lock Last Admin: 12/20/19 14:56 Dose: 10 ml Documented by: Timolol Maleate (Timoptic 0.5% Ophth Soln) 0 ml EYEBOTH DAILY [facility] [place] Last Admin: 12/20/19 08:03 Dose: 1 drop Documented by: Discontinued Medications Acetaminophen (Tylenol) 650 mg PO Q4H PRN PRN Reason: Pain (Mild 1-3)/fever Albuterol/Ipratropium (Duoneb 3.0-0.5 Mg/3 Ml) 3 ml NEB ONETIME ONE Stop: 12/18/19 15:09 Last Admin: 12/18/19 15:20 Dose: 3 ml Documented by: Bisacodyl (Dulcolax) 10 mg RECTAL ONETIME ONE Stop: 12/20/19 17:25 Last Admin: 12/20/19 17:38 Dose: 10 mg Documented by: Ceftriaxone Sodium (Rocephin) 1 gm IVPUSH ONETIME ONE Stop: 12/18/19 15:10 Last Admin: 12/18/19 15:20 Dose: 1 gm Documented by: Cholecalciferol (Vitamin D3) 50 mcg PO DAILY [facility] Last Admin: 12/19/19 08:49 Dose: Not Given Documented by: Furosemide (Lasix) 40 mg IVPUSH NOW ONE Stop: 12/18/19 15:09 Last Admin: 12/18/19 15:20 Dose: 40 mg Documented by: Furosemide (Lasix) 40 mg IVPUSH NOW ONE Stop: 12/19/19 08:01 Last Admin: 12/19/19 08:40 Dose: 40 mg Documented by: Glycerin (Sani-Supp Adult) 1 supp RECTAL ONETIME ONE Stop: 12/20/19 16:44 Azithromycin 500 mg/ Sodium (Chloride) 250 mls @ 250 mls/hr IV ONETIME ONE Stop: 12/18/19 16:07 Last Admin: 12/18/19 15:20 Dose: 250 mls/hr Documented by: Iopamidol (Isovue-300 (61%)) 100 ml IVPUSH ONETIME ONE Stop: 12/18/19 13:08 Last Admin: 12/18/19 23:29 Dose: Not Given Documented by: Iopamidol (Isovue-300 (61%)) Confirm Administered Dose 100 ml .ROUTE .STK-MED ONE Stop: 12/18/19 13:12 Last Admin: 12/18/19 23:29 Dose: Not Given Documented by: - Exam Quality Assessment: Supplemental Oxygen, DVT Prophylaxis. No: Skin Breakdown General: Alert, Oriented, Cooperative, No Acute Distress HEENT: Pupils Equal, Pupils Reactive, EOMI, Mucous Membr. Moist/[place] Neck: Supple Lungs: Normal Respiratory Effort, Decreased Breath Sounds (throughout), Rales (faint/bases). No: Rhonchi, Rub, Stridor, Wheezing Cardiovascular: Regular Rate, Regular Rhythm GI/Abdominal Exam: Normal Bowel Sounds, Soft, Non-Tender, No Distention (Female) Exam: Deferred Back Exam: No: CVA Tenderness (L), CVA Tenderness (R), Muscle Spasm Extremities: Pedal Edema (3+ bilateral ankles), Redness (faint erythema over left anterior alvarez). No: Dai's Sign, Increased Warmth, Mottled, Pallor Skin: Warm, Dry Neurological: No New Focal Deficit Psy/Mental Status: Alert, Normal Affect, Normal Mood Sepsis Event Note - Evaluation Sepsis Screening Result: No Definite Risk - Focused Exam Vital Signs: Vital Signs Temp Pulse Resp BP Pulse Ox 12/20/19 08:00 36.9 C 66 18 111/64 90 L Date Exam was Performed: 12/20/19 Time Exam was Performed: 17:50 - Problem List & Annotations (1) Pneumonia SNOMED Code(s): 282420745 Code(s): J18.9 - PNEUMONIA, UNSPECIFIED ORGANISM Status: Acute Priority: High Current Visit: Yes Annotation/Comment:: Right sided pnemonia. Most prominent in lower lobe. No history of aspiration. Unknown organism. Will order sputum culture. IV Rocephin and Zithromax initiated. Recheck xray December 21. Maintaining stable O2 sats on 2L O2 NC. No obvious cough today. Complains of some SOB but it is not acutely worse since beginning of hospitalization. (2) Weakness SNOMED Code(s): 13102263 Code(s): R53.1 - WEAKNESS Status: Chronic Priority: High Current Visit: Yes Annotation/Comment:: Worsening over last few weeks. Unable to perform ADLs. Needed to help lift her today at home. (3) Need for comfort care SNOMED Code(s): 738125844, 867496791 Code(s): XOC2089 - Status: Chronic Priority: High Current Visit: Yes Annotation/Comment:: Patient refuses anticoagulation. Is not interested in excessive testing. (4) Anxiety disorder SNOMED Code(s): 321066337 Code(s): F41.9 - ANXIETY DISORDER, UNSPECIFIED Status: Chronic Priority: Low Current Visit: No Annotation/Comment:: stable by history (5) CHF (congestive heart failure) SNOMED Code(s): 92010854 Code(s): I50.9 - HEART FAILURE, UNSPECIFIED Status: Chronic Priority: Low Current Visit: Yes Qualifiers: Heart failure type: unspecified Heart failure chronicity: chronic Qualified Code(s): I50.9 - Heart failure, unspecified Annotation/Comment:: No evidence of significant overload noted on physical exam. Mild elevation proBNP. Receiving daily lasix. (6) Bilateral lower extremity edema SNOMED Code(s): 094837738, 84040445, 417690375 Code(s): R60.0 - LOCALIZED EDEMA Status: Chronic Priority: Low Current Visit: Yes Annotation/Comment:: Chronic bilateral LE edema. Has gotten a little worse recently per patient. CT performed of left lower leg to look for DVT during October hospitalization per history as patient complains of mild chronic discomfort in left lower leg. Inconclusive. However no acute changes/worsening over the past few months. No calf pain. (7) Glaucoma SNOMED Code(s): 05769913 Code(s): H40.9 - UNSPECIFIED GLAUCOMA Status: Chronic Priority: Low Current Visit: No Qualifiers: Glaucoma type: unspecified Annotation/Comment:: Under therapy (8) Scoliosis (and kyphoscoliosis), idiopathic SNOMED Code(s): 73458818 Code(s): M41.20 - OTHER IDIOPATHIC SCOLIOSIS, SITE UNSPECIFIED Status: Chronic Priority: Low Current Visit: No (9) Hypercapnia SNOMED Code(s): 08533658 Code(s): R06.89 - OTHER ABNORMALITIES OF BREATHING Status: Chronic Priori ty: Low Current Visit: Yes Annotation/Comment:: Stable. CO2 noted over recent years to usually run in 40s and 50s (10) Hypoxemia SNOMED Code(s): 894869134 Code(s): R09.02 - HYPOXEMIA Status: Chronic Priority: Medium Current Visit: Yes Annotation/Comment:: On home O2 at 2L - Problem List Review Problem List Initiated/Reviewed/Updated: Yes - My Orders Last 24 Hours: My Active Orders 12/20/19 17:48 Anticoagulation Contraindications VTE [AST] Click to Edit 12/22/19 10:00 Chest 1V Frontal [CR] Routine - Assessment Assessment:: as above - Plan Plan:: as above. Given the extent of the pneumonia and patient's weakness anticipate 4 day inpatient stay while these are being evaluated and treated. Patient underwent cognitive evaluation today by case management and no significant impa irment noted. Unable to perform ADLs on own/cannot ambulate. There is doubt that she will be able to be discharged home after 96 hours given the amount of weakness she has. Need to consider Swing Bed placement if PT feels that they can work with her. Otherwise may need to consider care home placement if it is felt that this will be a chronic concern. New chest xray planned 12/21 to re-evaluated right lung pneumonia.
[2019-12-20] MEDS: Latanoprost 0.005% Ophth Soln 2.5 ML Bottle EYEBOTH SCH (20:08)
[2019-12-21] MEDS: Albuterol/Ipratropium 3.0-0.5 MG/3 ML Neb Soln NEB SCH ×4 (00:59→19:27)
[2019-12-21] MEDS: ClonazePAM 0.5 MG Tab PO SCH (08:24)
[2019-12-21] MEDS: Potassium Chloride 20 MEQ Tab.ER PO SCH (08:25)
[2019-12-21] MEDS: Polyethylene Glycol 3350 Powder 17 GM Packet PO SCH (08:25)
[2019-12-21] MEDS: Furosemide 40 MG/4 ML VIAL IVPUSH SCH (08:26)
[2019-12-21] MEDS: Timolol Maleate 0.5% Ophth Soln 5 ML Bottle EYEBOTH SCH (08:27)
[2019-12-21] MEDS: Sodium Chloride 0.9% 10 ML Syringe FLUSH PRN ×2 (08:30→15:33)
--- NOTE | 2019-12-21 09:45 | PCM.PN ---
- General Info Date of Service: 12/21/19 Admission Dx/Problem (Free Text): Right sided pneumonia/unknown organism and worsening weakness Subjective Update: Complains of continued weakness/fatigue. SOB (unchanged) Constipated. - Review of Systems Pulmonary: Reports: Shortness of Breath, Cough Cardiovascular: Reports: No Symptoms - Patient Data Vitals - Most Recent: Last Vital Signs Temp 97.5 F 12/21/19 00:57 Pulse 82 12/21/19 00:57 Resp 12 12/21/19 00:57 BP 137/64 12/21/19 00:57 Pulse Ox 97 12/21/19 00:57 Weight - Most Recent: 139 lb 7.995 oz I&O - Last 24 Hours: Intake & Output 12/20/19 12/21/19 12/21/19 18:59 02:59 10:59 Intake Total 400 Output Total 200 200 200 Balance 200 -200 -200 Med Orders - Current: Current Medications Acetaminophen (Tylenol) 650 mg PO Q4H PRN PRN Reason: Pain (Mild 1-3)/fever Albuterol/Ipratropium (Duoneb 3.0-0.5 Mg/3 Ml) 3 ml NEB Q6HRRT [facility] Last Admin: 12/21/19 08:24 Dose: 3 ml Documented by: Bisacodyl (Dulcolax) 5 mg PO DAILY PRN PRN Reason: Constipation Clonazepam (Klonopin) 0.5 mg PO BID [facility] Last Admin: 12/21/19 08:24 Dose: 0.5 mg Documented by: Furosemide (Lasix) 40 mg IVPUSH DAILY [facility] Last Admin: 12/21/19 08:26 Dose: 40 mg Documented by: Azithromycin 500 mg/ Sodium (Chloride) 250 mls @ 250 mls/hr IV Q24H [facility] Last Admin: 12/20/19 15:38 Dose: 250 mls/hr Documented by: Ceftriaxone Sodium 1 gm/ (Sodium Chloride) 100 mls @ 200 mls/hr IV Q24H [facility] Last Admin: 12/20/19 14:56 Dose: 200 mls/hr Documented by: Latanoprost (Xalatan 0.005% Ophth Soln) 0 ml EYEBOTH BEDTIME [facility] Last Admin: 12/20/19 20:08 Dose: 1 drop Documented by: Magnesium Hydroxide (Milk Of Magnesia) 30 ml PO DAILY PRN PRN Reason: Constipation Last Admin: 12/20/19 06:01 Dose: 30 ml Documented by: Ondansetron HCl (Zofran) 4 mg IVPUSH Q6H PRN PRN Reason: Nausea/Vomiting Polyethylene Glycol (Miralax) 17 gm PO DAILY [facility] Last Admin: 12/21/19 08:25 Dose: 17 gm Documented by: Potassium Chloride (Klor-Con M20) 20 meq PO DAILY [facility] Last Admin: 12/21/19 08:25 Dose: 20 meq Documented by: Senna (Senna) 1 mg PO BID PRN PRN Reason: Constipation Sodium Chloride (Saline Flush) 10 ml FLUSH ASDIRECTED PRN PRN Reason: to flush Saline Lock Last Admin: 12/21/19 08:30 Dose: 10 ml Documented by: Timolol Maleate (Timoptic 0.5% Ophth Soln) 0 ml EYEBOTH DAILY [facility] Last Admin: 12/21/19 08:27 Dose: 1 drop Documented by: Discontinued Medications Acetaminophen (Tylenol) 650 mg PO Q4H PRN PRN Reason: Pain (Mild 1-3)/fever Albuterol/Ipratropium (Duoneb 3.0-0.5 Mg/3 Ml) 3 ml NEB ONETIME ONE Stop: 12/18/19 15:09 Last Admin: 12/18/19 15:20 Dose: 3 ml Documented by: Bisacodyl (Dulcolax) 10 mg RECTAL ONETIME ONE Stop: 12/20/19 17:25 Last Admin: 12/20/19 17:38 Dose: 10 mg Documented by: Ceftriaxone Sodium (Rocephin) 1 gm IVPUSH ONETIME ONE Stop: 12/18/19 15:10 Last Admin: 12/18/19 15:20 Dose: 1 gm Documented by: Cholecalciferol (Vitamin D3) 50 mcg PO DAILY [facility] Last Admin: 12/19/19 08:49 Dose: Not Given Documented by: Furosemide (Lasix) 40 mg IVPUSH NOW ONE Stop: 12/18/19 15:09 Last Admin: 12/18/19 15:20 Dose: 40 mg Documented by: Furosemide (Lasix) 40 mg IVPUSH NOW ONE Stop: 12/19/19 08:01 Last Admin: 12/19/19 08:40 Dose: 40 mg Documented by: Furosemide (Lasix) 40 mg IVPUSH NOW ONE Stop: 12/20/19 17:53 Last Admin: 12/20/19 18:43 Dose: Not Given Documented by: Glycerin (Sani-Supp Adult) 1 supp RECTAL ONETIME ONE Stop: 12/20/19 16:44 Last Admin: 12/20/19 18:43 Dose: Not Given Documented by: Azithromycin 500 mg/ Sodium (Chloride) 250 mls @ 250 mls/hr IV ONETIME ONE Stop: 12/18/19 16:07 Last Admin: 12/18/19 15:20 Dose: 250 mls/hr Documented by: Iopamidol (Isovue-300 (61%)) 100 ml IVPUSH ONETIME ONE Stop: 12/18/19 13:08 Last Admin: 12/18/19 23:29 Dose: Not Given Documented by: Iopamidol (Isovue-300 (61%)) Confirm Administered Dose 100 ml .ROUTE .STK-MED ONE Stop: 12/18/19 13:12 Last Admin: 12/18/19 23:29 Dose: Not Given Documented by: - Exam Quality Assessment: Supplemental Oxygen General: Cooperative, Other (Generalized weakness) Lungs: Decreased Breath Sounds Cardiovascular: Regular Rhythm Sepsis Event Note - Evaluation Sepsis Screening Result: No Definite Risk - Focused Exam Vital Signs: Vital Signs Temp Pulse Resp BP Pulse Ox 12/21/19 00:57 97.5 F 82 12 137/64 97 Date Exam was Performed: 12/21/19 Time Exam was Performed: 09:40 - Problem List Review Problem List Initiated/Reviewed/Updated: Yes - Assessment Assessment:: as above Imp: Pneumonia on antibiotics - Plan Plan:: as above. Given the extent of the pneumonia and patient's weakness anticipate 4 day inpatient stay while these are being evaluated and treated. Patient underwent cognitive evaluation today by case management and no significant impairment noted. Unable to perform ADLs on own/cannot ambulate. There is do ubt that she will be able to be discharged home after 96 hours given the amount of weakness she has. Need to consider Swing Bed placement if PT feels that they can work with her. Otherwise may need to consider alf placement if it is felt that this will be a chronic concern. New chest xray planned 12/21 to re-evaluated right lung pneumonia. Plan: Plan swing bed or NH placement in near future
[2019-12-21] MEDS ORDERED: ClonazePAM 0.5 MG Tab PO PRN (10:33)
[2019-12-21] MEDS: cefTRIAXone 1 GM in Sodium Chloride 0.9% 100 ML IV SCH (14:27)
[2019-12-21] MEDS: Azithromycin 500 MG in Sodium Chloride 0.9% 250 ML IV SCH (15:28)
[2019-12-21] MEDS: Latanoprost 0.005% Ophth Soln 2.5 ML Bottle EYEBOTH SCH (19:27)
[2019-12-21] MEDS ORDERED: Furosemide 40 MG/4 ML VIAL IVPUSH SCH (20:00)
[2019-12-22] MEDS: Polyethylene Glycol 3350 Powder 17 GM Packet PO SCH (07:16)
[2019-12-22] MEDS: Potassium Chloride 20 MEQ Tab.ER PO SCH (07:17)
[2019-12-22] MEDS: Timolol Maleate 0.5% Ophth Soln 5 ML Bottle EYEBOTH SCH (07:18)
[2019-12-22] MEDS: Albuterol/Ipratropium 3.0-0.5 MG/3 ML Neb Soln NEB SCH ×2 (07:18→11:59)
[2019-12-22] MEDS: Furosemide 40 MG/4 ML VIAL IVPUSH SCH (07:18)
[2019-12-22] MEDS: Sodium Chloride 0.9% 10 ML Syringe FLUSH PRN (07:19)
[2019-12-22 09:26] VITALS: BP 112/62; PULSE 63
--- NOTE | 2019-12-22 11:07 | PCM.DCSUM1 ---
Discharge Summary - Hospital Course Free Text/Narrative:: Pt admitted with pneumonia and weakness On IV and PO antibiotics Diagnosis: Stroke: No - Discharge Data Discharge Date: 12/22/19 Discharge Disposition: DC/Tfer W/I Hosp To Swing 61 Condition: Fair - Referral to Home Health Primary Care Physician: Heidi Hoyos MD - Discharge Diagnosis/Problem(s) (1) Pneumonia SNOMED Code(s): 735712746 ICD Code: J18.9 - PNEUMONIA, UNSPECIFIED ORGANISM Status: Acute Priority: High Current Visit: Yes Problem Details: Right sided pnemonia. IV Rocephin and Zithromax Maintaining stable O2 sats on 2L O2 NC. No obvious cough today. Complains of some SOB but it is not acutely worse since beginning of hospitalization. (2) Weakness SNOMED Code(s): 65741824 ICD Code: R53.1 - WEAKNESS Status: Chronic Priority: High Current Visit: Yes Problem Details: Worsening over last few weeks. Unable to perform ADLs. Needed to help lift her today at home. Swingbed status today. - Patient Summary/Data Consults: Consultations 12/18/19 17:47 Consult to Case Management/Insurance Loss Assessor [CONS] Routine OT Evaluation and Treatment [CONS] Routine PT Evaluation and Treatment [CONS] Routine - Discharge Plan *PRESCRIPTION DRUG MONITORING PROGRAM REVIEWED*: Not Applicable *COPY OF PRESCRIPTION DRUG MONITORING REPORT IN PATIENT YAMILEX: Not Applicable Home Medications: Home Meds Cholecalciferol (Vitamin D3) [Vitamin D3] 2 tab PO DAILY 04/30/14 [History] Latanoprost [Xalatan 0.005% Ophth Soln] 1 drop EYEBOTH BEDTIME 04/30/14 [History] Timolol [Betimol 0.5% Ophth Soln] 1 drop EYEBOTH DAILY 04/30/14 [History] Albuterol [IMW: Albuterol] 1 dose INH BID 04/30/16 [History] Magnesium Hydroxide [Milk of Magnesia] 30 ml PO DAILY PRN 10/22/19 [History] clonazePAM [Clonazepam] 0.5 mg PO BID 10/22/19 [History] Acetaminophen [Tylenol] 650 mg PO Q4H PRN tablet 10/24/19 [Rx] Potassium Chloride 20 meq PO DAILY #5 tablet.er 10/24/19 [Rx] Non-Formulary Medication [NF Drug] 2 liter NASBOTH ASDIRECTED 12/18/19 [History] Torsemide 100 mg PO DAILY 12/18/19 [History] Forms: ED Department Discharge Referrals: Heidi Hoyos MD [Primary Care Provider] - - Discharge Summary/Plan Comment DC Time >30 min.: No - General Info Date of Service: 12/22/19 Admission Dx/Problem (Free Text: Pt admitted with right sided pneumonia - Review of Systems Pulmonary: Reports: Shortness of Breath, Cough - Patient Data Vitals - Most Recent: Last Vital Signs Temp 97.3 F 12/22/19 08:00 Pulse 63 12/22/19 08:00 Resp 18 12/22/19 08:00 BP 112/62 12/22/19 08:00 Pulse Ox 100 12/22/19 08:00 Weight - Most Recent: 139 lb 7.995 oz I&O - Last 24 hours: Intake & Output 12/22/19 12/22/19 12/22/19 02:59 10:59 18:59 Output Total 800 Balance -800 Med Orders - Current: Current Medications Acetaminophen (Tylenol) 650 mg PO Q4H PRN PRN Reason: Pain (Mild 1-3)/fever Albuterol/Ipratropium (Duoneb 3.0-0.5 Mg/3 Ml) 3 ml NEB QID [facility] Last Admin: 12/22/19 07:18 Dose: 3 ml Documented by: Bisacodyl (Dulcolax) 5 mg PO DAILY PRN PRN Reason: Constipation Clonazepam (Klonopin) 0.5 mg PO BEDTIME PRN PRN Reason: INSOMNIA Furosemide (Lasix) 40 mg IVPUSH DAILY [facility] Last Admin: 12/22/19 07:18 Dose: 40 mg Documented by: Azithromycin 500 mg/ Sodium (Chloride) 250 mls @ 250 mls/hr IV Q24H [facility] Last Admin: 12/21/19 15:28 Dose: 250 mls/hr Documented by: Ceftriaxone Sodium 1 gm/ (Sodium Chloride) 100 mls @ 200 mls/hr IV Q24H [facility] Last Admin: 12/21/19 14:27 Dose: 200 mls/hr Documented by: Latanoprost (Xalatan 0.005% Ophth Soln) 0 ml EYEBOTH BEDTIME [facility] Last Admin: 12/21/19 19:27 Dose: 1 drop Documented by: Magnesium Hydroxide (Milk Of Magnesia) 30 ml PO DAILY PRN PRN Reason: Constipation Last Admin: 12/20/19 06:01 Dose: 30 ml Documented by: Ondansetron HCl (Zofran) 4 mg IVPUSH Q6H PRN PRN Reason: Nausea/Vomiting Polyethylene Glycol (Miralax) 17 gm PO DAILY [facility] Last Admin: 12/22/19 07:16 Dose: 17 gm Documented by: Potassium Chloride (Klor-Con M20) 20 meq PO DAILY [facility] Last Admin: 12/22/19 07:17 Dose: 20 meq Documented by: Senna (Senna) 1 mg PO BID PRN PRN Reason: Constipation Sodium Chloride (Saline Flush) 10 ml FLUSH ASDIRECTED PRN PRN Reason: to flush Saline Lock Last Admin: 12/22/19 07:19 Dose: 10 ml Documented by: Timolol Maleate (Timoptic 0.5% Ophth Soln) 0 ml EYEBOTH DAILY [facility] Last Admin: 12/22/19 07:18 Dose: 1 drop Documented by: Discontinued Medications Acetaminophen (Tylenol) 650 mg PO Q4H PRN PRN Reason: Pain (Mild 1-3)/fever Albuterol/Ipratropium (Duoneb 3.0-0.5 Mg/3 Ml) 3 ml NEB ONETIME ONE Stop: 12/18/19 15:09 Last Admin: 12/18/19 15:20 Dose: 3 ml Documented by: Albuterol/Ipratropium (Duoneb 3.0-0.5 Mg/3 Ml) 3 ml NEB Q6HRRT [facility] Last Admin: 12/21/19 19:27 Dose: 3 ml Documented by: Bisacodyl (Dulcolax) 10 mg RECTAL ONETIME ONE Stop: 12/20/19 17:25 Last Admin: 12/20/19 17:38 Dose: 10 mg Documented by: Ceftriaxone Sodium (Rocephin) 1 gm IVPUSH ONETIME ONE Stop: 12/18/19 15:10 Last Admin: 12/18/19 15:20 Dose: 1 gm Documented by: Cholecalciferol (Vitamin D3) 50 mcg PO DAILY [facility] Last Admin: 12/19/19 08:49 Dose: Not Given Documented by: Clonazepam (Klonopin) 0.5 mg PO BID [facility] Last Admin: 12/21/19 08:24 Dose: 0.5 mg Documented by: Furosemide (Lasix) 40 mg IVPUSH NOW ONE Stop: 12/18/19 15:09 Last Admin: 12/18/19 15:20 Dose: 40 mg Documented by: Furosemide (Lasix) 40 mg IVPUSH NOW ONE Stop: 12/19/19 08:01 Last Admin: 12/19/19 08:40 Dose: 40 mg Documented by: Furosemide (Lasix) 40 mg IVPUSH NOW ONE Stop: 12/20/19 17:53 Last Admin: 12/20/19 18:43 Dose: Not Given Documented by: Glycerin (Sani-Supp Adult) 1 supp RECTAL ONETIME ONE Stop: 12/20/19 16:44 Last Admin: 12/20/19 18:43 Dose: Not Given Documented by: Azithromycin 500 mg/ Sodium (Chloride) 250 mls @ 250 mls/hr IV ONETIME ONE Stop: 12/18/19 16:07 Last Admin: 12/18/19 15:20 Dose: 250 mls/hr Documented by: Iopamidol (Isovue-300 (61%)) 100 ml IVPUSH ONETIME ONE Stop: 12/18/19 13:08 Last Admin: 12/18/19 23:29 Dose: Not Given Documented by: Iopamidol (Isovue-300 (61%)) Confirm Administered Dose 100 ml .ROUTE .STK-MED ONE Stop: 12/18/19 13:12 Last Admin: 12/18/19 23:29 Dose: Not Given Documented by: - Exam Quality Assessment: Reports: Supplemental Oxygen Neck: Reports: Supple Lungs: Reports: Decreased Breath Sounds Cardiovascular: Reports: Regular Rate Skin: Reports: Warm, Dry *Q Meaningful Use (DIS) - VTE *Q VTE Anticoagulation Contraindications: Tx/proc Refused by PT
== END 2019-12-22 11:18 | disposition swing bed (61) | DRG 195 ==
LOC: LL.ED 10:44 → UNDOADMIN 17:37 → LL.MS 17:37
PROVIDERS: ADMIT Emergency Medicine; ATTEND Emergency Medicine
DX: J18.9 Pneumonia, unspecified organism (principal); H91.90 Unspecified hearing loss, unspecified ear; Z51.5 Encounter for palliative care; R53.1 Weakness; I11.0 Hypertensive heart disease with heart failure; I50.9 Heart failure, unspecified; R06.89 Other abnormalities of breathing; R09.02 Hypoxemia; J84.10 Pulmonary fibrosis, unspecified; M41.20 Other idiopathic scoliosis, site unspecified; K59.09 Other constipation; F41.9 Anxiety disorder, unspecified; F32.9 Major depressive disorder, single episode, unspecified; K57.90 Diverticulosis of intestine, part unspecified, without perforation or abscess without bleeding; Z87.440 Personal history of urinary (tract) infections; I27.20 Pulmonary hypertension, unspecified; D64.9 Anemia, unspecified; Z85.828 Personal history of other malignant neoplasm of skin; Z98.49 Cataract extraction status, unspecified eye; H40.9 Unspecified glaucoma; Z79.899 Other long term (current) drug therapy; Z99.81 Dependence on supplemental oxygen; Z88.6 Allergy status to analgesic agent; Z88.8 Allergy status to other drugs, medicaments and biological substances; Z88.5 Allergy status to narcotic agent
CPT/HCPCS: 36415; 71045; 71046; 71260; 80053; 81001; 82803; 83735; 83880; 85025; 93005; 93010; 94640; 94660; 96365; 96375; 97110-GP; 97163-GP; 97165-GO; 97530-GP; 99222; 99232; 99238; 99285-25; A9270-GY; J0456; J0696; J1940; J7050; J7620-GY; Q9967

== ENCOUNTER 2019-12-22 08:58 | Inpatient (IN) | payer MEDICARE, OTHER, MEDICAID ==
[2019-12-22] MEDS ORDERED: Magnesium Hydroxide 400 MG/5 ML Susp 30 ML Cup PO PRN (11:12)
[2019-12-22] MEDS ORDERED: Bisacodyl 5 MG Tab PO PRN (11:12)
[2019-12-22] MEDS ORDERED: Sennosides 8.6 MG Tab PO PRN (11:12)
[2019-12-22] MEDS ORDERED: Acetaminophen 325 MG Tab PO PRN (12:00)
[2019-12-22] MEDS ORDERED: Ondansetron 4 MG/2 ML SDV IVPUSH PRN (12:00)
[2019-12-22] MEDS: Albuterol/Ipratropium 3.0-0.5 MG/3 ML Neb Soln NEB SCH ×3 (13:24→19:24)
[2019-12-22] MEDS ORDERED: cefTRIAXone 1 GM in Sodium Chloride 0.9% 100 ML IV SCH (14:00)
[2019-12-22] MEDS ORDERED: Azithromycin 500 MG in Sodium Chloride 0.9% 250 ML IV SCH (15:00)
[2019-12-22] MEDS: Sodium Chloride 0.9% 10 ML Syringe FLUSH PRN ×2 (15:21→15:24)
[2019-12-22] MEDS: ClonazePAM 0.5 MG Tab PO PRN (19:24)
[2019-12-22] MEDS: Latanoprost 0.005% Ophth Soln 2.5 ML Bottle EYEBOTH SCH (19:25)
[2019-12-23] MEDS: Potassium Chloride 20 MEQ Tab.ER PO SCH (07:27)
[2019-12-23] MEDS: Sodium Chloride 0.9% 10 ML Syringe FLUSH PRN (07:27)
[2019-12-23] MEDS: Albuterol/Ipratropium 3.0-0.5 MG/3 ML Neb Soln NEB SCH ×3 (07:27→20:21)
[2019-12-23] MEDS: Polyethylene Glycol 3350 Powder 17 GM Packet PO SCH (07:28)
[2019-12-23] MEDS: Timolol Maleate 0.5% Ophth Soln 5 ML Bottle EYEBOTH SCH (07:28)
[2019-12-23] MEDS ORDERED: Furosemide 40 MG/4 ML VIAL IVPUSH SCH (08:00)
[2019-12-23] MEDS: ClonazePAM 0.5 MG Tab PO PRN (20:21)
[2019-12-23] MEDS: Latanoprost 0.005% Ophth Soln 2.5 ML Bottle EYEBOTH SCH (20:21)
[2019-12-24] MEDS ORDERED: Ondansetron 4 MG Tab.DIS PO PRN (02:49)
[2019-12-24] MEDS ORDERED: Albuterol/Ipratropium 3.0-0.5 MG/3 ML Neb Soln NEB PRN (02:54)
[2019-12-24] MEDS ORDERED: Furosemide 40 MG/4 ML VIAL IVPUSH ONE (08:33)
[2019-12-24 08:37] LABS: CHLORIDE,CL 93 mmol/L (98-107); SODIUM,NA 135 mmol/L (136-145)
[2019-12-24] MEDS: Sodium Chloride 0.9% 10 ML Syringe FLUSH PRN (09:07)
[2019-12-24] MEDS: Albuterol/Ipratropium 3.0-0.5 MG/3 ML Neb Soln NEB SCH (09:16)
[2019-12-24] MEDS: Timolol Maleate 0.5% Ophth Soln 5 ML Bottle EYEBOTH SCH (09:19)
[2019-12-24] MEDS: Polyethylene Glycol 3350 Powder 17 GM Packet PO SCH (09:20)
[2019-12-24] MEDS: Potassium Chloride 20 MEQ Tab.ER PO SCH (09:20)
--- NOTE | 2019-12-24 10:11 | PCM.PN ---
- General Info Date of Service: 12/24/19 Admission Dx/Problem (Free Text): 1. Pneumonia 2. Pulmonary fibrosis with hypoxemia and hypercapnia 3. Generalized weakness Subjective Update: Patient with probable CVA earlier this morning with last well-known time at midnight. Patient is nonverbal and a poor historian. Functional Status: Reports: Pain Controlled - Review of Systems General: Reports: Weakness (Progressive generalized weakness with left facial and right-sided hemiparesis) HEENT: Reports: No Symptoms Pulmonary: Reports: No Symptoms Cardiovascular: Reports: Edema (Stable dependent) Gastrointestinal: Reports: No Symptoms Genitourinary: Reports: Incontinence Skin: Reports: No Symptoms. Denies: Diaphoresis Neurological: Reports: Confusion, Dizziness (At midnight), Trouble Speaking, Difficulty Walking, Weakness (Progressive as above), Change in Speech, Other (Responsive to verbal and tactile stimuli only). Denies: Headache, Seizure, Syncope Psychiatric: Reports: Confusion, Other. Denies: Agitation, Hallucinations - Patient Data Vitals - Most Recent: Last Vital Signs Temp 37.0 C 12/23/19 07:28 Pulse 76 12/23/19 07:28 Resp 18 12/23/19 07:28 BP 150/78 H 12/23/19 07:28 Pulse Ox 93 L 12/23/19 07:28 Vital Signs (72 hours) 12/22/19 12/22/19 12/23/19 11:12 13:24 07:28 Temperature [ 36.6 C 37.0 C Temporal] Pulse, 88 76 Peripheral [ Left Pulse Oximetry] Respiratory 16 18 Rate Blood Pressure 136/83 150/78 H [Right Upper Arm] O2 Sat by Pulse 96 96 93 L Oximetry O2 Sat by Pulse 96 Oximetry [ Nasal Cannula] Weight - Most Recent: 69.763 kg I&O - Last 24 Hours: Intake & Output 12/23/19 12/24/19 12/24/19 22:59 06:59 14:59 Intake Total 220 Output Total 150 Balance 220 -150 Imaging Impressions - Last 24 Hours: CT scan of the head without contrast on 12/24/19 showed no acute processes Lab Results Last 24 Hours: Laboratory Results - last 24 hr 12/24/19 12/24/19 12/24/19 Range/Units 08:15 08:15 08:30 WBC 5.3 (4.0-10.2) K/uL RBC 3.80 (3.77-5.09) M/uL Hgb 10.8 L (11.7-15.5) g/dL Hct 37.3 (34.0-46.0) % MCV 98.2 H (84.0-98.0) fL MCH 28.4 (28.2-33.3) pg MCHC 29.0 L (31.7-36.0) g/dL RDW 12.4 (11.2-14.1) % Plt Count 166 (150-350) K/uL Neut % (Auto) 68.6 (45.0-80.0) % Lymph % (Auto) 17.3 (10.0-50.0) % [place] % (Auto) 10.8 (2.0-14.0) % Eos % (Auto) 2.7 (0.0-5.0) % Baso % (Auto) 0.6 (0.0-2.0) % Neut # (Auto) 3.62 (1.40-7.00) K/uL Lymph # (Auto) 0.91 (0.50-3.50) K/uL [place] # (Auto) 0.57 (0.00-1.00) K/uL Eos # (Auto) 0.14 (0.00-0.50) K/uL Baso # (Auto) 0.03 (0.00-0.20) K/uL Sodium 135 L (136-145) mmol/L Potassium 4.8 (3.5-5.1) mmol/L Chloride 93 L (98-107) mmol/L Carbon Dioxide 45.0 H* (21.0-32.0) mmol/L BUN 10 (7-18) mg/dL Creatinine 0.37 L (0.51-1.17) mg/dL Est Cr Clr Drug Dosing 87.92 mL/min Estimated GFR (MDRD) > 60 mL/min Glucose 134 H (74-106) mg/dL Calcium 9.3 (8.5-10.1) mg/dL Total Bilirubin 0.2 (0.2-1.0) mg/dL AST 26 (15-37) U/L ALT 23 (12-78) U/L Alkaline Phosphatase 65 (46-116) IU/L Total Protein 7.1 (6.4-8.2) g/dL Albumin 2.6 L (3.4-5.0) g/dL Specimen Type . Urine Color Dark yellow Urine Appearance Slightly cloudy Urine pH 6.0 (5.0-9.0) Ur Specific [place] >= 1.030 (1.005-1.030) Urine Protein 100 H (NEGATIVE) mg/dL Urine Glucose (UA) Negative (NEGATIVE) mg/dL Urine Ketones Negative (NEGATIVE) mg/dL Urine Occult Blood Trace-intact H (NEGATIVE) Urine Nitrite Negative (NEGATIVE) Urine Bilirubin Negative (NEGATIVE) Urine Urobilinogen 0.2 (0.2-1.0) E.U./dL Ur Leukocyte Esterase Negative (NEGATIVE) U Hyaline Cast (Auto) Few Urine RBC 0-5 /HPF Urine WBC 5-10 H /HPF Ur Epithelial Cells Few /LPF Urine Bacteria Few (NONE TO FEW) /HPF Urine Mucus Moderate H (NEGATIVE) /LPF Stevie Results Last 24 Hours: None Med Orders - Current: Current Medications Acetaminophen (Tylenol) 650 mg PO Q4H PRN PRN Reason: Pain (Mild 1-3)/fever Albuterol/Ipratropium (Duoneb 3.0-0.5 Mg/3 Ml) 3 ml NEB BIDRT [facility] Last Admin: 12/24/19 09:16 Dose: 3 ml Documented by: Albuterol/Ipratropium (Duoneb 3.0-0.5 Mg/3 Ml) 3 ml NEB Q4HRRT PRN PRN Reason: Shortness of Breath Last Admin: 12/24/19 03:11 Dose: 3 ml Documented by: Bisacodyl (Dulcolax) 5 mg PO DAILY PRN PRN Reason: Constipation Clonazepam (Klonopin) 0.5 mg PO BEDTIME PRN PRN Reason: INSOMNIA Last Admin: 12/23/19 20:21 Dose: 0.5 mg Documented by: Latanoprost (Xalatan 0.005% Ophth Soln) 0 ml EYEBOTH BEDTIME [facility] Last Admin: 12/23/19 20:21 Dose: 1 drop Documented by: Magnesium Hydroxide (Milk Of Magnesia) 30 ml PO DAILY PRN PRN Reason: Constipation Ondansetron HCl (Zofran Odt) 4 mg PO Q6H PRN PRN Reason: Nausea/Vomiting Last Admin: 12/24/19 03:10 Dose: 4 mg Documented by: Polyethylene Glycol (Miralax) 17 gm PO DAILY [facility] Last Admin: 12/24/19 09:20 Dose: Not Given Documented by: Potassium Chloride (Klor-Con M20) 20 meq PO DAILY [facility] Last Admin: 12/24/19 09:20 Dose: Not Given Documented by: Senna (Senna) 8.6 mg PO BID PRN PRN Reason: Constipation Sodium Chloride (Saline Flush) 10 ml FLUSH ASDIRECTED PRN PRN Reason: to flush Saline Lock Last Admin: 12/24/19 09:07 Dose: 10 ml Documented by: Timolol Maleate (Timoptic 0.5% Oph Soln) 0 ml EYEBOTH DAILY [facility] Last Admin: 12/24/19 09:19 Dose: 1 drop Documented by: Discontinued Medications Albuterol/Ipratropium (Duoneb 3.0-0.5 Mg/3 Ml) 3 ml NEB QID [facility] Last Admin: 12/23/19 13:55 Dose: Not Given Documented by: Furosemide (Lasix) 40 mg IVPUSH DAILY [facility] Last Admin: 12/23/19 07:27 Dose: 40 mg Documented by: Furosemide (Lasix) 40 mg IVPUSH NOW ONE Stop: 12/24/19 08:34 Last Admin: 12/24/19 09:07 Dose: 40 mg Documented by: Azithromycin 500 mg/ Sodium (Chloride) 250 mls @ 250 mls/hr IV Q24H [facility] Last Admin: 12/22/19 15:20 Dose: 250 mls/hr Documented by: Ceftriaxone Sodium 1 gm/ (Sodium Chloride) 100 mls @ 200 mls/hr IV Q24H [facility] Last Admin: 12/22/19 15:19 Dose: 200 mls/hr Documented by: Ondansetron HCl (Zofran) 4 mg IVPUSH Q6H PRN PRN Reason: Nausea/Vomiting - Exam Quality Assessment: Urine Catheter (Placed this morning), DVT Prophylaxis. No: Supplemental Oxygen, Central Line/PICC, Skin Breakdown, Restraints General: Lethargic HEENT: Pupils Equal, Pupils Reactive, Mucous Membr. Moist/[place]. No: EOMI (Unable to assess) Neck: Supple, Trachea Midline, Carotid Bruit (Moderate bilateral carotid bruits versus transmitted heart sounds). No: Lymphadenopathy, Thyromegaly Lungs: Rales (Moderate bilateral basilar), Other (Beginning Kussmaul breathing). No: Rhonchi, Rub, Wheezing Cardiovascular: Regular Rate, Regular Rhythm, Murmurs (23/6 SHIRLEY of the aortic and mitral valves). No: Gallops, Rubs GI/Abdominal Exam: Normal Bowel Sounds, Soft, Non-Tender, No Organomegaly, No Distention, No Abnormal Bruit, No Mass, Pelvis Stable, Other (Obese). No: Guarding (Female) Exam: Deferred Back Exam: Other (Mild kyphoscoliosis). No: CVA Tenderness (L), CVA Tenderness (R), Muscle Spasm, Paraspinal Tenderness, Vertebral Tenderness Extremities: Normal Inspection, Pedal Edema (+1 bilateral pedal/pretibial edema). No: Dai's Sign, Limited Range of Motion (Secondary to CVA ) Peripheral Pulses: 1+: Dorsalis Pedis (L), Dorsalis Pedis (R), 2+: Radial (L), Radial (R) Skin: Warm, Dry, Intact. No: Ecchymosis Neurological: Other (Negative Babinski's and severe right-sided hemiparesis with moderate left patient hemiparesis. Nonverbal.) Psy/Mental Status: No: Agitated, Hallucinations, Withdrawal Symptoms Sepsis Event Note - Evaluation Sepsis Screening Result: No Definite Risk - Focused Exam Date Exam was Performed: 12/24/19 Time Exam was Performed: 10:28 - Problem List & Annotations (1) CVA (cerebral vascular accident) SNOMED Code(s): 666544343 Code(s): I63.9 - CEREBRAL INFARCTION, UNSPECIFIED Status: Acute Priority: High Current Visit: Yes Onset Date: 12/24/19 Qualifiers: CVA mechanism: embolism Precerebral and cerebral artery: middle cerebral artery Laterality of affected vessel: right Qualified Code(s): I63.411 - Cerebral infarction due to embolism of right middle cerebral artery Annotation/Comment:: 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 Current comfort care. Extensive family conference with the patient's and their son, Melo, who does suffer from schizophrenia, in the patient's room this morning with various therapeutic options discussed. No further patient transfer, aggressive care, etc. per their request and previous palliative care wishes that the patient. Emotional support was provided with extremely poor prognosis extensively discussed. IV fluids for the next 24 hours only with caution secondary to her previous CHF with IV Lasix given this morning. Patient is nonverbal and unable to take oral medications. IV antibiotics were discontinued yesterday. Note that the family is considering hospice and will continue arranging for future planned transfer to a local long-term previously planned for treatment of her progressive generalized weakened condition. Note that patient did start developing some nonspecific confusion and dizziness at midnight with otherwise having a very good day on 12/22. (2) Pulmonary fibrosis SNOMED Code(s): 45732375 Code(s): J84.10 - PULMONARY FIBROSIS, UNSPECIFIED Status: Chronic Priority: Medium Current Visit: Yes Annotation/Comment:: Note recent pneumonia with chronic hypoxia and hypercapnia with no current O2 therapy required. (3) Pneumonia SNOMED Code(s): 896930663 Code(s): J18.9 - PNEUMONIA, UNSPECIFIED ORGANISM Status: Acute Priority: High Current Visit: No Annotation/Comment:: Right sided pnemonia. IV Rocephin and Zithromax completed yesterday. Note CVA on 12/23 with care no further treatment, x-rays, laboratories, etc. (4) CHF (congestive heart failure) SNOMED Code(s): 34728105 Code(s): I50.9 - HEART FAILURE, UNSPECIFIED Status: Chronic Priority: High Current Visit: Yes Qualifiers: Heart failure type: unspecified Heart failure chronicity: chronic Qualified Code(s): I50.9 - Heart failure, unspecified Annotation/Comment:: IV Lasix given this morning. No recent chest pain or anginal type symptoms. Continue comfort care as above. Note mild hyponatremia secondary to her CHF on 12/23. (5) Need for comfort care SNOMED Code(s): 814427817, 994527927 Code(s): GHB9729 - Status: Chronic Priority: High Current Visit: Yes Annotation/Comment:: Comfort care status confirmed with the patient's today as above. Family is considering hospice in the near future secondary to her CVA. Prognosis is extremely poor with patient possibly exploring the next 2448 hours Patient previously refused anticoagulation and was not interested in excessive testing. (6) Weakness SNOMED Code(s): 07517009 Code(s): R53.1 - WEAKNESS Status: Chronic Priority: High Current Visit: No Annotation/Comment:: Worsening over last few weeks. Unable to perform ADLs. Needed to help lift her today at home. was previously considered long-term placement as above. (7) Heart murmur SNOMED Code(s): 31631496 Code(s): R01.1 - CARDIAC MURMUR, UNSPECIFIED Status: Chronic Priority: High Current Visit: Yes Annotation/Comment:: Probable aortic valve stenosis and mitral valve insufficiency by clinical exam. (8) Anemia SNOMED Code(s): 626696958 Code(s): D64.9 - ANEMIA, UNSPECIFIED Status: Acute Priority: Medium Current Visit: Yes Onset Date: 12/24/19 Qualifiers: Anemia type: unspecified type Qualified Code(s): D64.9 - Anemia, unspecified Annotation/Comment:: No evidence of acute GI bleed. No comfort care. Observe for now. (9) Hypertension SNOMED Code(s): 76180312 Code(s): I10 - ESSENTIAL (PRIMARY) HYPERTENSION Status: Chronic Priority: Medium Current Visit: Yes Qualifiers: Hypertension type: essential hypertension Qualified Code(s): I10 - Essential (primary) hypertension Annotation/Comment:: Stable despite CVA. - Problem List Review Problem List Initiated/Reviewed/Updated: Yes - Assessment Assessment:: As above - Plan Plan:: As above. Extensive precautions were given to the patient and her family, who is in agreement with the treatment plan. Prognosis is extremely poor as above.
[2019-12-24 12:53] VITALS: BP 113/61; PULSE 103
--- NOTE | 2019-12-24 20:00 | PCM.DCSUM1 ---
Discharge Summary - Hospital Course HPI Initial Comments: See admission H&P Brief History: See admission H&P Diagnosis: Stroke: Yes Modified Lorton Scale: Modified Lorton Scale Score: 6 - Discharge Data Discharge Date: 12/24/19 Discharge Disposition: Preliminary Cause of *Q: Other_Special Instruction (CVA with exacerbation of her CHF) Condition: Good - Referral to Home Health Primary Care Physician: PCP None - Discharge Diagnosis/Problem(s) (1) CVA (cerebral vascular accident) SNOMED Code(s): 217364109 ICD Code: I63.9 - CEREBRAL INFARCTION, UNSPECIFIED Status: Acute Priority: High Current Visit: Yes Onset Date: 12/24/19 Problem Details: Patient at 14:40 hours 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 Current comfort care. Earlier today I did have an extensive family conference with the patient's and their son, Melo, who does suffer from schizophrenia, in the patient's room this morning with various therapeutic options discussed. No further patient transfer, aggressive care, etc. per their request and previous palliative care wishes that the patient. Emotional support was provided with extremely poor prognosis extensively discussed. IV fluids were held secondary to her CHF with IV given this morning. Patient was nonverbal and unable to take oral medications. IV antibiotics were discontinued yesterday. Note that the family was considering hospice and did continue arranging for future planned transfer to a local longterm as previously planned for treatment of her progressive generalized weakened condition. Note that patient did start developing some nonspecific confusion and dizziness at midnight with otherwise having a very good day on 12/22. Qualifiers: CVA mechanism: embolism Precerebral and cerebral artery: middle cerebral artery Laterality of affected vessel: right Qualified Code(s): I63.411 - Cerebral infarction due to embolism of right middle cerebral artery (2) Pulmonary fibrosis SNOMED Code(s): 96814723 ICD Code: J84.10 - PULMONARY FIBROSIS, UNSPECIFIED Status: Chronic Priority: Medium Current Visit: Yes Problem Details: Note recent pneumonia with chronic hypoxia and hypercapnia with no current O2 therapy required. (3) Pneumonia SNOMED Code(s): 080822077 ICD Code: J18.9 - PNEUMONIA, UNSPECIFIED ORGANISM Status: Acute Priority: High Current Visit: No Problem Details: Right sided pnemonia. IV Rocephin and Zithromax completed on 12/22. Note CVA on 12/23 with care no further treatment, x-rays, laboratories, etc. (4) CHF (congestive heart failure) SNOMED Code(s): 44788950 ICD Code: I50.9 - HEART FAILURE, UNSPECIFIED Status: Chronic Priority: High Current Visit: Yes Problem Details: IV Lasix given this morning. No recent chest pain or anginal type symptoms. Continue comfort care as above. Note mild hyponatremia secondary to her CHF on 12/23. Qualifiers: Heart failure type: unspecified Heart failure chronicity: chronic Qualifi ed Code(s): I50.9 - Heart failure, unspecified (5) Need for comfort care SNOMED Code(s): 510911733, 480898295 ICD Code: [id number] - Status: Chronic Priority: High Current Visit: Yes Problem Details: Comfort care status confirmed with the patient's today as above. Family was considering hospice in the near future secondary to her CVA. Prognosis was extremely poor. Patient previously refused anticoagulation and was not interested in excessive testing. (6) Weakness SNOMED Code(s): 07882538 ICD Code: R53.1 - WEAKNESS Status: Chronic Priority: High Current Visit: No Problem Details: Worsening over last few weeks. Unable to perform ADLs. Needed to help lift her today at home. was previously considered longterm placement as above. (7) Heart murmur SNOMED Code(s): 74348496 ICD Code: R01.1 - CARDIAC MURMUR, UNSPECIFIED Status: Chronic Priority: High Current Visit: Yes Problem Details: Probable aortic valve stenosis and mitral valve insufficiency by clinical exam. (8) Anemia SNOMED Code(s): 617061152 ICD Code: D64.9 - ANEMIA, UNSPECIFIED Status: Acute Priority: Medium Current Visit: Yes Onset Date: 12/24/19 Problem Details: No evidence of acute GI bleed. Note comfort care. Qualifiers: Anemia type: unspecified type Qualified Code(s): D64.9 - Anemia, unspecified (9) Hypertension SNOMED Code(s): 02477767 ICD Code: I10 - ESSENTIAL (PRIMARY) HYPERTENSION Status: Chronic Priority: Medium Current Visit: Yes Problem Details: Stable despite CVA. Qualifiers: Hypertension type: essential hypertension Qualified Code(s): I10 - Essential (primary) hypertension - Patient Summary/Data Operative Procedure(s) Performed: None Complications: CVA as above Consults: Consultations 12/22/19 11:12 Consult to Case Management/Machine Riveter [CONS] Routine OT Evaluation and Treatment [CONS] Routine PT Evaluation and Treatment [CONS] Routine Labs Pending at D/C: None Recommended Follow-up Testing/Procedures: None Planned Operative Procedure(s) after DC: None Hospital Course: The patient was initially hospitalized in this facility in inpatient/acute care for treatment of her pneumonia and CHF with subsequent transfer to [facility]. Treatment as above with patient having a CVA in the a.m. of 12/23. She did at 14:40 hours. Emotional support was provided to the family. - Patient Instructions Diet: NPO - Discharge Plan *PRESCRIPTION DRUG MONITORING PROGRAM REVIEWED*: Not Applicable *COPY OF PRESCRIPTION DRUG MONITORING REPORT IN PATIENT YAMILEX: Not Applicable Home Medications: Home Meds Cholecalciferol (Vitamin D3) [Vitamin D3] 2 tab PO DAILY 04/30/14 [History] Latanoprost [Xalatan 0.005% Ophth Soln] 1 drop EYEBOTH BEDTIME 04/30/14 [History] Timolol [Betimol 0.5% Ophth Soln] 1 drop EYEBOTH DAILY 04/30/14 [History] Albuterol [IMW: Albuterol] 1 dose INH BID 04/30/16 [History] Magnesium Hydroxide [Milk of Magnesia] 30 ml PO DAILY PRN 10/22/19 [History] clonazePAM [Clonazepam] 0.5 mg PO BID 10/22/19 [History] Acetaminophen [Tylenol] 650 mg PO Q4H PRN tablet 10/24/19 [Rx] Potassium Chloride 20 meq PO DAILY #5 tablet.er 10/24/19 [Rx] Non-Formulary Medication [NF Drug] 2 liter NASBOTH ASDIRECTED 12/18/19 [History] Torsemide 100 mg PO DAILY 12/18/19 [History] - Discharge Summary/Plan Comment DC Time >30 min.: Yes (Coordination of care ) Discharge Summary/Plan Comment: As above. Body released to mortuary. - General Info Date of Service: 12/24/19 Admission Dx/Problem (Free Text: 1. Pneumonia 2. Pulmonary fibrosis with hypoxemia and hypercapnia 3. Generalized weakness Subjective Update: Patient with probable CVA earlier this morning with last well-known time at midnight. Patient is nonverbal and a poor historian. - Patient Data Vitals - Most Recent: Last Vital Signs Temp 36.4 C 12/24/19 08:00 Pulse 103 H 12/24/19 08:00 Resp 24 H 12/24/19 08:00 BP 113/61 12/24/19 08:00 Pulse Ox 84 L 12/24/19 08:00 Vital Signs - 24 hr 12/24/19 08:00 Temperature [ 36.4 C Temporal] Pulse, 103 H Peripheral [ Left Pulse Oximetry] Respiratory 24 H Rate Blood Pressure 113/61 [Right Upper Arm] O2 Sat by Pulse 84 L Oximetry Weight - Most Recent: 69.763 kg I&O - Last 24 hours: Intake & Output 12/24/19 12/24/19 12/24/19 06:59 14:59 22:59 Output Total 150 300 Balance -150 -300 Imaging Impressions - Last 24 hrs: As per progress note earlier today. Lab Results - Last 24 hrs: Laboratory Results - last 24 hr 12/24/19 12/24/19 12/24/19 Range/Units 08:15 08:15 08:30 WBC 5.3 (4.0-10.2) K/uL RBC 3.80 (3.77-5.09) M/uL Hgb 10.8 L (11.7-15.5) g/dL Hct 37.3 (34.0-46.0) % MCV 98.2 H (84.0-98.0) fL MCH 28.4 (28.2-33.3) pg MCHC 29.0 L (31.7-36.0) g/dL RDW 12.4 (11.2-14.1) % Plt Count 166 (150-350) K/uL Neut % (Auto) 68.6 (45.0-80.0) % Lymph % (Auto) 17.3 (10.0-50.0) % [place] % (Auto) 10.8 (2.0-14.0) % Eos % (Auto) 2.7 (0.0-5.0) % Baso % (Auto) 0.6 (0.0-2.0) % Neut # (Auto) 3.62 (1.40-7.00) K/uL Lymph # (Auto) 0.91 (0.50-3.50) K/uL [place]ick # (Auto) 0.57 (0.00-1.00) K/uL Eos # (Auto) 0.14 (0.00-0.50) K/uL Baso # (Auto) 0.03 (0.00-0.20) K/uL Sodium 135 L (136-145) mmol/L Potassium 4.8 (3.5-5.1) mmol/L Chloride 93 L (98-107) mmol/L Carbon Dioxide 45.0 H* (21.0-32.0) mmol/L BUN 10 (7-18) mg/dL Creatinine 0.37 L (0.51-1.17) mg/dL Est Cr Clr Drug Dosing 87.92 mL/min Estimated GFR (MDRD) > 60 mL/min Glucose 134 H (74-106) mg/dL Calcium 9.3 (8.5-10.1) mg/dL Total Bilirubin 0.2 (0.2-1.0) mg/dL AST 26 (15-37) U/L ALT 23 (12-78) U/L Alkaline Phosphatase 65 (46-116) IU/L Total Protein 7.1 (6.4-8.2) g/dL Albumin 2.6 L (3.4-5.0) g/dL Specimen Type . Urine Color Dark yellow Urine Appearance Slightly cloudy Urine pH 6.0 (5.0-9.0) Ur Specific [place] >= 1.030 (1.005-1.030) Urine Protein 100 H (NEGATIVE) mg/dL Urine Glucose (UA) Negative (NEGATIVE) mg/dL Urine Ketones Negative (NEGATIVE) mg/dL Urine Occult Blood Trace-intact H (NEGATIVE) Urine Nitrite Negative (NEGATIVE) Urine Bilirubin Negative (NEGATIVE) Urine Urobilinogen 0.2 (0.2-1.0) E.U./dL Ur Leukocyte Esterase Negative (NEGATIVE) U Hyaline Cast (Auto) Few Urine RBC 0-5 /HPF Urine WBC 5-10 H /HPF Ur Epithelial Cells Few /LPF Urine Bacteria Few (NONE TO FEW) /HPF Urine Mucus Moderate H (NEGATIVE) /LPF Laboratory Tests 12/24/19 12/24/19 12/24/19 Range/Units 08:15 08:15 08:30 WBC 5.3 (4.0-10.2) K/uL RBC 3.80 (3.77-5.09) M/uL Hgb 10.8 L (11.7-15.5) g/dL Hct 37.3 (34.0-46.0) % MCV 98.2 H (84.0-98.0) fL MCH 28.4 (28.2-33.3) pg MCHC 29.0 L (31.7-36.0) g/dL RDW 12.4 (11.2-14.1) % Plt Count 166 (150-350) K/uL Neut % (Auto) 68.6 (45.0-80.0) % Lymph % (Auto) 17.3 (10.0-50.0) % [place] % (Auto) 10.8 (2.0-14.0) % Eos % (Auto) 2.7 (0.0-5.0) % Baso % (Auto) 0.6 (0.0-2.0) % Neut # (Auto) 3.62 (1.40-7.00) K/uL Lymph # (Auto) 0.91 (0.50-3.50) K/uL [place] # (Auto) 0.57 (0.00-1.00) K/uL Eos # (Auto) 0.14 (0.00-0.50) K/uL Baso # (Auto) 0.03 (0.00-0.20) K/uL Sodium 135 L (136-145) mmol/L Potassium 4.8 (3.5-5.1) mmol/L Chloride 93 L (98-107) mmol/L Carbon Dioxide 45.0 H* (21.0-32.0) mmol/L BUN 10 (7-18) mg/dL Creatinine 0.37 L (0.51-1.17) mg/dL Est Cr Clr Drug Dosing 87.92 mL/min Estimated GFR (MDRD) > 60 mL/min Glucose 134 H (74-106) mg/dL Calcium 9.3 (8.5-10.1) mg/dL Total Bilirubin 0.2 (0.2-1.0) mg/dL AST 26 (15-37) U/L ALT 23 (12-78) U/L Alkaline Phosphatase 65 (46-116) IU/L Total Protein 7.1 (6.4-8.2) g/dL Albumin 2.6 L (3.4-5.0) g/dL Specimen Type . Urine Color Dark yellow Urine Appearance Slightly cloudy Urine pH 6.0 (5.0-9.0) Ur Specific [place] >= 1.030 (1.005-1.030) Urine Protein 100 H (NEGATIVE) mg/dL Urine Glucose (UA) Negative (NEGATIVE) mg/dL Urine Ketones Negative (NEGATIVE) mg/dL Urine Occult Blood Trace-intact H (NEGATIVE) Urine Nitrite Negative (NEGATIVE) Urine Bilirubin Negative (NEGATIVE) Urine Urobilinogen 0.2 (0.2-1.0) E.U./dL Ur Leukocyte Esterase Negative (NEGATIVE) U Hyaline Cast (Auto) Few Urine RBC 0-5 /HPF Urine WBC 5-10 H /HPF Ur Epithelial Cells Few /LPF Urine Bacteria Few (NONE TO FEW) /HPF Urine Mucus Moderate H (NEGATIVE) /LPF VINAYAK Results - Last 24 hrs: None Med Orders - Current: Current Medications Acetaminophen (Tylenol) 650 mg PO Q4H PRN PRN Reason: Pain (Mild 1-3)/fever Albuterol/Ipratropium (Duoneb 3.0-0.5 Mg/3 Ml) 3 ml NEB BIDRT [facility] Last Admin: 12/24/19 09:16 Dose: 3 ml Documented by: Albuterol/Ipratropium (Duoneb 3.0-0.5 Mg/3 Ml) 3 ml NEB Q4HRRT PRN PRN Reason: Shortness of Breath Last Admin: 12/24/19 03:11 Dose: 3 ml Documented by: Bisacodyl (Dulcolax) 5 mg PO DAILY PRN PRN Reason: Constipation Clonazepam (Klonopin) 0.5 mg PO BEDTIME PRN PRN Reason: INSOMNIA Last Admin: 12/23/19 20:21 Dose: 0.5 mg Documented by: Latanoprost (Xalatan 0.005% Ophth Soln) 0 ml EYEBOTH BEDTIME [facility] Last Admin: 12/23/19 20:21 Dose: 1 drop Documented by: Magnesium Hydroxide (Milk Of Magnesia) 30 ml PO DAILY PRN PRN Reason: Constipation Ondansetron HCl (Zofran Odt) 4 mg PO Q6H PRN PRN Reason: Nausea/Vomiting Last Admin: 12/24/19 03:10 Dose: 4 mg Documented by: Polyethylene Glycol (Miralax) 17 gm PO DAILY [facility] Last Admin: 12/24/19 09:20 Dose: Not Given Documented by: Potassium Chloride (Klor-Con M20) 20 meq PO DAILY [facility] Last Admin: 12/24/19 09:20 Dose: Not Given Documented by: Senna (Senna) 8.6 mg PO BID PRN PRN Reason: Constipation Sodium Chloride (Saline Flush) 10 ml FLUSH ASDIRECTED PRN PRN Reason: to flush Saline Lock Last Admin: 12/24/19 09:07 Dose: 10 ml Documented by: Timolol Maleate (Timoptic 0.5% Ophth Soln) 0 ml EYEBOTH DAILY [facility] Last Admin: 12/24/19 09:19 Dose: 1 drop Documented by: Discontinued Medications Albuterol/Ipratropium (Duoneb 3.0-0.5 Mg/3 Ml) 3 ml NEB QID [facility] Last Admin: 12/23/19 13:55 Dose: Not Given Documented by: Furosemide (Lasix) 40 mg IVPUSH DAILY [facility] Last Admin: 12/23/19 07:27 Dose: 40 mg Documented by: Furosemide (Lasix) 40 mg IVPUSH NOW ONE Stop: 12/24/19 08:34 Last Admin: 12/24/19 09:07 Dose: 40 mg Documented by: Azithromycin 500 mg/ Sodium (Chloride) 250 mls @ 250 mls/hr IV Q24H [facility] Last Admin: 12/22/19 15:20 Dose: 250 mls/hr Documented by: Ceftriaxone Sodium 1 gm/ (Sodium Chloride) 100 mls @ 200 mls/hr IV Q24H [facility] Last Admin: 12/22/19 15:19 Dose: 200 mls/hr Documented by: Ondansetron HCl (Zofran) 4 mg IVPUSH Q6H PRN PRN Reason: Nausea/Vomiting - Exam Lungs: Reports: Other (No spontaneous respirations) Cardiovascular: Reports: Other (No pulses. Asystole confirmed with telemetry strip) *Q Meaningful Use (DIS) - VTE *Q VTE Anticoagulation Contraindications: Tx/proc Refused by PT
== END 2019-12-24 19:05 | disposition expired | DRG 291 ==
LOC: LL.MS 13:16
PROVIDERS: ADMIT Family Medicine; ATTEND Family Medicine
DX: I11.0 Hypertensive heart disease with heart failure (principal); J18.9 Pneumonia, unspecified organism; I63.411 Cerebral infarction due to embolism of right middle cerebral artery; E87.1 Hypo-osmolality and hyponatremia; J84.10 Pulmonary fibrosis, unspecified; Z51.5 Encounter for palliative care; R01.1 Cardiac murmur, unspecified; I50.9 Heart failure, unspecified; R53.1 Weakness; D64.9 Anemia, unspecified; Z79.899 Other long term (current) drug therapy; Z99.81 Dependence on supplemental oxygen
CPT/HCPCS: 36415; 51702; 70450; 71045; 80053; 81001; 85025; 94640; 97110-GP; 97162-GP; 97530-GO; 97530-GP; A9270-GY; J0456; J0696; J1940; J7050; J7620-GY